=== PATIENT | female | born 1950 | race Caucasian/White ===

== ENCOUNTER 2016-08-07 17:35 | Observation (INO) | payer OTHER, MEDICARE ==
[~2016-08-07] VITALS: Ht 165.1 cm; Wt 68.0 kg
[~2016-08-07 17:35] MED LIST: ZOFRAN4 M1 SL
--- NOTE | 2016-08-07 17:51 | NUR ---
C/O PAIN BETWEEN SHOULDER BLADES SINCE YESTERDAY, WORSE TODAY. HAD SIMILIAR SXS WITH [place] 18 YEARS AGO AFTER KIDNEY TRANSPLANT. DENIES DIZZINESS OR SOB.
--- NOTE | 2016-08-07 18:37 | NUR ---
TRIAGE NOTE ACKNOWLEDGED AND RN CARE ASSUMED PT EVALUATED BY LIBERTAD ESPINOZA
--- NOTE | 2016-08-07 19:16 | NUR ---
IV ESTABLISHED. BLOOD SAMPLES OBTAINED AND SENT TO LAB ([facility], [facility], [facility], [facility])
[2016-08-07 19:29] LABS: ABSOLUTE BASOPHIL COUNT 0 /CUMM (0.0-0.2); ABSOLUTE EOSINOPHIL COUNT 0.1 /CUMM (0.0-0.7); ABSOLUTE GRANULOCYTE CT 4.9 /CUMM (1.4-6.5); ABSOLUTE LYMPH COUNT 0.9 /CUMM (1.2-3.4); ABSOLUTE MONOCYTE COUNT 0.5 /CUMM (0.10-0.60); BASOPHIL % 0.6 % (0.0-2.0); EOSINOPHIL % 1.1 % (0-5); GRANULOCYTE % 76.1 % (42.2-75.2); HEMATOCRIT 33.4 % (37-47); MEAN CORPUSCULAR HGB 34.5 PG (27.0-31.0); MEAN CORPUSCULAR HGB CONC 33.6 G/DL (33.0-37.0); MEAN CORPUSCULAR VOLUME 102.7 FL (81.0-99.0); MEAN PLATELET VOLUME 7.4 FL (7.4-10.4); PLATELET COUNT 404 /CUMM (130-400); RBC DISTRIBUTION WIDTH 19.1 % (11.5-14.5); RED BLOOD CELL CT 3.26 /CUMM (4.20-5.40); WHITE BLOOD CELL COUNT 6.5 /CUMM (4.8-10.8)
--- NOTE | 2016-08-07 19:31 | RADIOLOGY REPORT ---
EXAMINATION: XR CHEST CLINICAL INFORMATION: 65-year-old female patient with chest pain. COMPARISON: Chest x-ray done 10/20/2013. (Normal). TECHNIQUE: PA and lateral views of the chest were obtained. FINDINGS: No significant abnormality is noted involving the heart, lungs, mediastinum, bony thorax, or soft tissues. The thin linear scar is seen in the right lung and is unchanged. IMPRESSION: Unremarkable examination.
--- NOTE | 2016-08-07 20:17 | ED CARDIAC/CP/PALPITATIONS ---
History of Present Illness General Chief Complaint: Neck/Upper Back Pain/Injury Stated Complaint: UPPER BACK PAIN Source: patient Exam Limitations: no limitations Vital Signs & Intake/Output Vital Signs & Intake/Output Vital Signs Date Time Temp Pulse Resp B/P Pulse O2 O2 Flow FiO2 Ox Delivery Rate 08/07 1815 98.4 84 18 140/85 99 Room Air Allergies Coded Allergies: lisinopril (Severe, MOUTH SWELLING 09/08/15) Iodinated Contrast Media - Oral and (IODINATED CONTRAST MEDIA - IV DYE) (Severe, KIDNEY TRANSPLANT 09/08/15) codeine (NAUSEA 09/08/15) hydrochlorothiazide (NAUSEA 09/08/15) Triage Note: C/O PAIN BETWEEN SHOULDER BLADES SINCE YESTERDAY, WORSE TODAY. HAD SIMILIAR SXS WITH IN 18 YEARS AGO AFTER KIDNEY TRANSPLANT. Triage Nurses Notes Reviewed? yes Onset: Abrupt Duration: day(s):, intermittent Timing: recent history Quality/Severity: moderate, severe Location: back Radiation: no radiation Activities at Onset: none HPI: 65-year-old female comes into emergency room with complaints of upper back pain has been going on for the past few days. Patient has a history of IN and history of renal transplant. Patient reports that the pain that she is experiencing felt exactly like the previous heart attack that she had. Patient also complains of some chest achiness on the anterior aspect denies actual pain. Denies any vomiting or diaphoresis. Mild shortness of breath. (LIBERTAD BIRMINGHAM) Reconcile Medications Azathioprine 50 MG TABLET 1 TAB PO DAILY PER LIST (Reported) Bupropion HCl (Bupropion XL) 300 MG TAB.ER.24H 1 TAB PO QAM PER LIST ( Reported) Clonidine HCl 0.1 MG TABLET 1 TAB PO QPM PER LIST (Reported) Cyclosporine, Modified (Cyclosporine Modified) 100 MG CAPSULE 125 MG PO BID PER LIST (Reported) Esomeprazole (Nexium) 40 MG CAPSULE.DR 1 CAP PO DAILY PER LIST (Reported) Furosemide 40 MG TABLET 1 TAB PO BID PER LIST (Reported) Hydralazine HCl 100 MG TABLET 1 TAB PO TID PER LIST (Reported) Lorazepam 0.5 MG TABLET 1 TAB PO AT BEDTIME PER LIST (Reported) Metoprolol Tartrate 100 MG TABLET 1 TAB PO BID PER LIST (Reported) Mometasone Furoate (Nasonex) 50 MCG SPRAY.PUMP 2 SPRAY NASB DAILY PER LIST ( Reported) Nifedipine (Procardia XL) 90 MG TAB.ER.24 1 TAB PO DAILY PER LIST (Reported) Nystatin 100,000 UNIT/ML ORAL.SUSP 5 ML PO 4 TIMES/DAY PER LIST (Reported) Ondansetron (Zofran Odt) 4 MG ODT 1 TAB SL TID PRN NAUSEA Prednisone 5 MG TABLET 1 TAB PO DAILY PER LIST (Reported) Prochlorperazine Maleate 5 MG TABLET 2.5 MG PO 0 PRN PER LIST (Reported) (VIVEK QUINONEZ DO) Past History Travel History Traveled to [place] past 21 day No Medical History Any Pertinent Medical History? see below for history Neurological: PSEUDO-TUMOR CERIBRI SMALL VESSEL DISEASE EENT: LEFT SINUS CYST Cardiovascular: myocardial infarction, HTN (R/T RENAL) Gastrointestinal: LACTOSE INTOLERANT Renal: renal transplant, POLYCYCTIC KIDNEY DISEASE Psychiatric: depression Blood Disorders: CHRONIC ELEVATED WBC CHRONIC LOW RBC Cancer(s): basal cell carcinoma History of MRSA: No History of VRE: No History of CDIFF: No Pneumonia Vaccine: 04/13/10 Influenza Vaccine: 04/02/15 Surgical History Surgical History: RENAL TRANSPLANT Psychosocial History Who do you live with Patient/Self Services at Home None What is your primary language Chinese Tobacco Use: Current Daily Use Daily Tobacco Use Amount/Type: => 5 Cigarettes daily ETOH Use: denies use Family History Hx Contributory? No (LIBERTAD BIRMINGHAM) Review of Systems Review of Systems Constitutional: Reports: no symptoms. EENTM: Reports: no symptoms. Respiratory: Reports: see HPI. Cardiovascular: Reports: see HPI. GI: Reports: no symptoms. Genitourinary: Reports: no symptoms. Musculoskeletal: Reports: see HPI. Skin: Reports: no symptoms. Neurological/Psychological: Reports: no symptoms. Hematologic/Endocrine: Reports: no symptoms. Immunologic/Allergic: Reports: no symptoms. All Other Systems: Reviewed and Negative (LIBERTAD BIRMINGHAM) Physical Exam Physical Exam General Appearance: well developed/nourished, no apparent distress, alert, awake Head: atraumatic, normal appearance Eyes: Bilateral: normal appearance. Ears, Nose, Throat: normal pharynx, normal ENT inspection, hearing grossly normal Neck: normal inspection, full range of motion Respiratory: normal breath sounds, no respiratory distress Cardiovascular: regular rate/rhythm Gastrointestinal: normal bowel sounds, soft Back: normal inspection, normal range of motion Extremities: normal inspection, normal range of motion Neurologic/Psych: awake, alert, oriented x 3, normal gait Skin: intact, normal color Core Measures ACS in differential dx? Yes Severe Sepsis Present: No Septic Shock Present: No (LIBERTAD BIRMINGH[place]) Progress Differential Diagnosis: AMI, aortic dissection, atrial fibrillation, cholecystitis, hyperkalemia, hypovolemia, hyperthyroid, hyperventilation, intracranial hemorrhage, myocarditis, pancreatitis, pericarditis, pneumonia, pneumothorax, pulmonary embolism, PUD/GERD, PVCs/PACs, respiratory failure, rib fracture, sepsis, unstable angina, V-fib/V-Tach Initial ED EKG: normal intervals, normal p-waves, normal sinus rhythm, rate (73) (LIBERTAD BIRMINGHAM) Plan of Care: Orders Procedure Date/time Status Heart Healthy Diet 08/[address] in observation 08/07 2102 Active Patient Data 08/07 2057 Active Vital Signs 08/07 204 Active Code Status 08/07 204 Active Telemetry/Masking Machine Feeder 08/07 182 Active TROPONIN LEVEL 08/07 1829 Complete COMPREHENSIVE METABOLIC PANEL 08/07 1829 Complete CBC WITHOUT DIFFERENTIAL 08/07 182 Complete EKG 08/07 1750 Active Laboratory Tests 08/07/16 1911: Anion Gap 12, Estimated GFR 27 L, BUN/Creatinine Ratio 40.0 H, Glucose 105 H, Calcium 9.1, Total Bilirubin 0.6, AST 26, ALT 28, Alkaline Phosphatase 83, Troponin I < 0.01, Total Protein 7.1, Albumin 4.0, Globulin 3.1, Albumin/ Globulin Ratio 1.3, CBC w Diff NO MAN DIFF REQ, RBC 3.26 L, MCV 102.7 H, MCH 34.5 H, RDW 19.1 H, MPV 7.4, Gran % 76.1 H, Lymphocytes % 14.5 L, Monocytes % 7.7, Eosinophils % 1.1, Basophils % 0.6, Absolute Granulocytes 4.9, Absolute Lymphocytes 0.9 L, Absolute Monocytes 0.5, Absolute Eosinophils 0.1, Absolute Basophils 0, PUBS MCHC 33.6 Departure Departure Disposition: STILL A PATIENT Condition: Stable Referrals: DEVAUGHN PENA,AMPARO Akins (PCP/Family) Departure Forms: Customer Survey General Discharge Information (LIBERTAD B[place]) Departure Clinical Impression Primary Impression: EKG abnormalities Secondary Impressions: Chest pain Admission Note Documentation of Exam: Documentation of any treatments & extenuating circumstances including Concerns Regarding Discharge (functional status, medication knowledge or non-compliance, living conditions, etc.) that warrant an admission rather than observation: Observation Note Spoke With: SUMIT FELDMAN MD Physician Advisor Notified: NEELIMA PENA,BILLY Silva Place Patient In: Non-ED OBS Care Area Rationale for Observation: My rational for observation is as follows [patient needs serial troponins, cardiology consultation, inpatient echocardiogram, cardiac monitoring]. PA/BARREL LINER Co-Sign Statement Statement: ED Attending supervision documentation- [X] I saw and evaluated the patient. I have also reviewed all the pertinent lab results and diagnostic results. I agree with the findings and the plan of care as documented in the PA's/BARREL LINER's documentation. [] I have reviewed the ED Record and agree with the PA's/BARREL LINER's documentation. [] Additions or exceptions (if any) to the PAs/BARREL LINER's note and plan are summarized below: [] 08/07/16 65-year-old female presents to the emergency department complaining of back pain and intermittent chest ache. The patient states that she has symptoms consistent with her prior IN. Her EKG shows nonspecific but some changes compared to the old tracing. She is therefore being placed into observation to the telemetry service for serial enzymes, inpatient echocardiogram and cardiology evaluation. (VIVEK QUINONEZ DO) Critical Care Note Critical Care Note Critical Care Time: 30-74 min (LIBERTAD BIRMINGHAM)
--- NOTE | 2016-08-07 20:20 | NUR ---
OLGA REAVES AT BEDSIDE TO DISCUSS TEST RESULTS AND PLAN FOR CONSULT WITH PT'S [facility] (DR W[place])
--- NOTE | 2016-08-07 20:39 | NUR ---
DR QUINONEZ AND OLGA REAVES AT BEDSIDE TO DISCUSS ANTICIPATED ADMISSION POST CONSULT
--- NOTE | 2016-08-07 20:58 | History & Physical ---
[facility] [place] 08/07/162057: General Information and HPI MD Statement: I have seen and personally examined SANGEETA NAYAK and documented this H&P. The patient is a 65 year old F who presented with a patient stated chief complaint of back pain. 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 Pain is located in her mid back at the level of her bra strap and initially started yesterday afternoon. At that time it was very mild and resolved after a few hours upon applying heat. Today pain recurred around noon but it was more severe than the prior episode, 3-4 out of 10 and did not subside with applying heat or ice to the area. Pain is not positional and there are no alleviating or exacerbating factors. When the pain started this afternoon, she also had an "ache" in her chest that lasted about half an hour. Patient was concerned and decided to present to the ED as the pain was similar to the pain that she had felt during her what she refers to her prior episode of "OR" 3 days following her kidney transplant, except less intense. Looking back at her greens planter Dr Pederson notes, it was felt that prior episode was felt to represent takotsubo cardiomyopathy as cardiac cath performed during that time was negative for CAD. By the time patient presented to the ED, pain had already resolved. She has not received any nitroglycerin. Of note patient has frequent episodes of back pain, involving different parts of her back, which she attributes to her osteoarthritis but these episodes usually resolve after applying heat, unlike the current one. Allergies/Medications Allergies: Coded Allergies: lisinopril (Severe, MOUTH SWELLING 09/08/15) Iodinated Contrast Media - Oral and (IODINATED CONTRAST MEDIA - IV DYE) (Severe, KIDNEY TRANSPLANT 09/08/15) codeine (NAUSEA 09/08/15) hydrochlorothiazide (NAUSEA 09/08/15) Home Med list Ascorbic Acid (Vitamin C) 500 MG CAPSULE.ER 1 CAP PO DAILY SUPP (Reported) Aspirin (Oscar Chewable Aspirin) 81 MG TAB.CHEW 81 MG PO D PER LIST (Reported ) Azathioprine 50 MG TABLET 1 TAB PO DAILY PER LIST (Reported) Bupropion HCl (Bupropion XL) 300 MG TAB.ER.24H 1 TAB PO QAM PER LIST ( Reported) Calcium Carbonate/Vitamin D3 (Calcium 500 + D Tablet) 500 MG-400 TABLET 1 TAB PO BID SUPPLEMENT (Reported) Clonidine HCl 0.1 MG TABLET 1 TAB PO QPM PER LIST (Reported) Cyclobenzaprine HCl 10 MG TABLET 1 TAB PO BID PER LIST (Reported) Cyclosporine, Modified (Cyclosporine Modified) 100 MG CAPSULE 125 MG PO BID PER LIST (Reported) Epoetin Lukas (Epogen) (Unknown Strength) VIAL (Unknown Dose) PER LIST ( Reported) Ergocalciferol (Vitamin D2) (Vitamin D2) 50,000 UNIT CAPSULE 1 CAP PO QW SUPP (Reported) Esomeprazole (Nexium) 40 MG CAPSULE.DR 1 CAP PO DAILY PER LIST (Reported) Fexofenadine HCl (Laury Allergy) 180 MG TABLET 1 TAB PO DAILY ALLERGY ( Reported) Fish Oil/Borage/Flax/Om3,6,9#1 (Gorman 3-6-9 1,200 MG Softgel) 1,200 MG CAPSULE 1 CAP PO DAILY SUPPLEMENT (Reported) Furosemide 40 MG TABLET 1 TAB PO BID PER LIST (Reported) Hydralazine HCl 100 MG TABLET 1 TAB PO TID PER LIST (Reported) Lorazepam 0.5 MG TABLET 1 TAB PO AT BEDTIME PER LIST (Reported) Metoprolol Tartrate 100 MG TABLET 1 TAB PO BID PER LIST (Reported) Mometasone Furoate (Nasonex) 50 MCG SPRAY.PUMP 2 SPRAY NASB DAILY PER LIST ( Reported) Nifedipine (Procardia XL) 90 MG TAB.ER.24 1 TAB PO DAILY PER LIST (Reported) Nystatin 100,000 UNIT/ML ORAL.SUSP 5 ML PO 4 TIMES/DAY PER LIST (Reported) Ondansetron (Zofran Odt) 4 MG ODT 1 TAB SL TID PRN NAUSEA Polyethylene Glycol 3350 (Miralax) 17 GRAM POWD.PACK 1 PAC PO DAILY CONSTIPATION (Reported) dissolve in water Potassium Chloride 20 MEQ TAB.ER.PRT 1 TAB PO DAILY PER LIST (Reported) Prednisone 5 MG TABLET 1 TAB PO DAILY PER LIST (Reported) Prochlorperazine Maleate 5 MG TABLET 2.5 MG PO PRN PER LIST (Reported) Sertraline HCl 50 MG TABLET 75 MG PO DAILY PER LIST (Reported) Sodium Bicarbonate 650 MG TABLET 1 TAB PO BID PER LIST (Reported) Valsartan 320 MG TABLET 1 TAB PO DAILY PER LIST (Reported) Past History Travel History Traveled to [place] past 21 day No Medical History Neurological: peripheral neuropathy, pseudotumor cerebri, syncope EENT: left maxillary sinus cyst, arachnoid cyst Cardiovascular: hyperlipidemia, myocardial infarction, HTN Gastrointestinal: GERD, LACTOSE INTOLERANT, ventral hernia, paulino esophagitis Renal: 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), polycystic kidney disease, renal transplant Musculoskeletal: degen joint disease, osteoarthritis Psychiatric: anxiety, depression Blood Disorders: anemia Cancer(s): basal cell carcinoma Other Medical Hx: allergic rhinitis History of MRSA: No History of VRE: No History of CDIFF: No Pneumonia Vaccine: 04/13/10 Influenza Vaccine: 04/02/15 Surgical History Surgical History: hysterectomy, knee replacement (right), tubal ligation, renal transplant, lumbar peritoneal shunt placement, AC joint resection, BCC removal, meniscus surgery, AV fistula creation Past Family/Social History Family History Relations & Conditions if any FATHER, , Age 40-50; Cause: Brain aneurysm. FH: brain aneurysm Polycystic kidney disease BROTHER Polycystic kidney disease Psychosocial History Where do you live? Home Who Do You Live With? self Services at Home: None Primary Language: Bengali Smoking Status: Current Everyday Smoker (1 PPD for 40 Years) ETOH Use: denies use (Heavy Use in the Past) Illicit Drug Use: denies illicit drug use Living Will? yes Functional Ability ADLs Independent: dressing, eating, toileting, bathing. Ambulation: cane IADLs Independent: shopping, housework, finances, food prep, telephone, transportation , medication admin. 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 EENTM: Reports: no symptoms. Cardiovascular: Denies: chest pain, palpitations. Respiratory: Reports: cough (chronic), sputum production (chronic). Denies: short of breath. GI: Denies: abdominal pain, constipation, diarrhea, nausea, vomiting. Genitourinary: Reports: no symptoms. Musculoskeletal: Reports: back pain. Skin: Reports: no symptoms. Neurological/Psychological: Reports: no symptoms. Denies: headache. Hematologic/Endocrine: Reports: no symptoms. Immunologic/Allergic: Reports: no symptoms. All Other Systems: Reviewed and Negative Exam & Diagnostic Data Last 24 Hrs of Vital Signs/I&O Vital Signs Date Time Temp Pulse Resp B/P Pulse O2 O2 Flow FiO2 Ox Delivery Rate 08/08 0231 78 168/80 08/08 0231 78 168/80 08/08 0113 82 178/82 08/08 0113 82 178/82 08/07 2307 98.1 79 20 190/90 95 Room Air 08/07 2248 78 18 171/81 95 Room Air 08/07 1815 98.4 84 18 140/85 99 Room Air Intake & Output 08/08 0800 08/08 0000 08/07 1600 Intake Total Output Total Balance Patient 68.039 kg Weight Physical Exam General Appearance Alert, Oriented X3, No Acute Distress Skin No Rashes HEENT PERRLA, Mucous Membr. moist/pink, Tongue Brown in Color Cardiovascular Regular Rate, Normal S1, Normal S2 Lungs Clear to Auscultation Abdomen Soft, No Tenderness, Nondistended, Positive Bowel Sounds Neurological No Gross Focal Deficits Noted Extremities No Clubbing, No Cyanosis, Left Lower Extremity with 1+ Edema ( Chronic Per Patient), Right Lower Extremity with Trace Edema Last 24 Hrs of Labs/Emiliano: Laboratory Tests 08/08/16 0300: Troponin I < 0.01 08/07/16 1911: Anion Gap 12, Estimated GFR 27 L, BUN/Creatinine Ratio 40.0 H, Glucose 105 H, Calcium 9.1, Total Bilirubin 0.6, AST 26, ALT 28, Alkaline Phosphatase 83, Troponin I < 0.01, Total Protein 7.1, Albumin 4.0, Globulin 3.1, Albumin/ Globulin Ratio 1.3, Lipase 265, CBC w Diff NO MAN DIFF REQ, RBC 3.26 L, MCV 102.7 H, MCH 34.5 H, RDW 19.1 H, MPV 7.4, Gran % 76.1 H, Lymphocytes % 14.5 L, Monocytes % 7.7, Eosinophils % 1.1, Basophils % 0.6, Absolute Granulocytes 4.9, Absolute Lymphocytes 0.9 L, Absolute Monocytes 0.5, Absolute Eosinophils 0.1, Absolute Basophils 0, PUBS MCHC 33.6 Diagnostic Data EKG Results EKG: NSR HR 73 Poor progression of R wave. No ST-T wave abnormalities noted. QTc 463 CXR Results CXR: Unremarkable examination. Assessment/Plan Assessment: 65 y/o F with PMHx of polycystic kidney disease s/p kidney transplant in 1997 with residual CKD, takotsubo cardiomyopathy and resistant HTN who presents with back pain. #Back pain: Midback pain which per patient is similar to her prior episode of pain 3 days after except her kidney transplant, felt to represent takotsubo cardiomyopathy in the absence of CAD on cardiac cath. Concerning for ACS in the setting of her significant risk factors for CAD including smoking, resistant HTN , CKD and HLD. Differential includes musculoskeletal etiology given history of back pain 2/2 osteoarthritis and pancreatitis. PE unlikely in the absence of SOB or tachycardia. EKG with NSR and no ST-T wave abnormalities. First set of troponins negative. * Admit to telemetry for continuous cardiac monitoring. * Cardiology consult in the AM. Appreciate their recs. * Serial troponins and EKG. * Avoid imaging with contrast as patient is s/p kidney transplant with CKD. * Lipase ordered to rule out pancreatitis. * Continue home daily low dose aspirin. * Continue home Flexeril 10 mg PO BID. #PCKD: S/p transplant in 1997. Cr 1.9 on admission, which appears to be baseline for patient. * Continue prior to admission azathioprine 50 mg PO QD, cyclosporine 100 mg PO BID and prednisone 5 mg PO QD. #HTN: Meets criteria for resistant HTN as patient is on >3 different blood pressure medications including a diuretic. * Continue prior to admission Lasix 40 mg PO QD, clonidine 0.1 mg PO QHS, metoprolol 100 mg PO BID and hydralazine 100 mg PO TID. * Losartan 100 mg PO QD (Patient takes valsartan 320 mg PO QD). #Paulino esophagitis: Recently diagnosed by EGD. * Continue Nystatin 5 ml PO QID. #Depression: * Continue prior to admission Zoloft 75 mg PO QD and Wellbutrin 300 mg PO QAM. #Anxiety: * Continue prior to admission Ativan 0.5 mg PO QHS. #GERD: * Omeprazole 40 mg PO QAC. Diet: Heart Healthy Pain: Tylenol 650 mg PO Q6H PRN for mild pain (scale 1-3) DVT PPx: HSQ and ALPs CODE: FULL As Ranked By This Provider Problem List: 1. Chest pain 2. EKG abnormalities 3. Polycystic kidney disease 4. Resistant hypertension Core Measures/Miscellaneous Acute Coronary Syndrome ACS Diagnosis: No Cerebrovascular Accident CVA/TIA Diagnosis: No Congestive Heart Failure CHF Diagnosis: No Venous Thromboembolism VTE Risk Factors: Acute medical illness, Age > 40, Smoking VTE Prophylaxis Ordered Inpt: Mech & Pharm No Mech VTE prophylaxis d/t: No contraindications No VTE Pharm Prophylaxis d/t: No contraindications VTE Diagnosis: No VTE Type: NONE VTE Confirmed by (Test): NONE Severe Sepsis Severe Sepsis Present: No Septic Shock Septic Shock Present: No Miscellaneous Documentation Attending Case Discussed With: DYLAN NORMAN MD Primary Care Physician: DEVAUGHN PENA,AMPARO Akins Patient sees these Specialists Coding Team Lead Juan Castillo MD Balloon Sander Noah Pederson MD Level of Patient Care: Telemetry [facility] 08/08/16 0229: Resident Review Statement Resident Statement: examined this patient, discussed with intern retail, agreed with intern retail Other Findings: 65 YO F with pmh of mi, renal transplant, pseudo tumor cerebri, polycystic kidney disease presents to the ER c/o pain that started between her shoulders at the level of her bra strap. Reports that her pain started about 3 hours prior to admision, which has since resoloved without medical management. She denies recent episodes of such pain. Denies sob, palpitation, lightheadedness. She is worried that this pain may resemble the mi she suffered though not nearly as severe. T 98.4, P 18, BP 140/85, 99 RA Alert Oriented x4, sitting comfortably CVS S1 S2, no m/r/g, -jvd RS clear to auscultation b/l Abdo soft, nontender, nondistended, bd+ HH 11.2/33.4, MCV 102.7, BUN 76, Creatinine 1.9, negative tropoinins CXR no signifcant abn noted involving heart, lungs, mediastinum mc thorax or soft tissues We will admit her to Teleetry for ruling out OR due to her extensive cardiac troponin. Will get serial troponins and EKGS, cardiology evaluation (sees dr. retana) will continue medications for renal transplant, ie azithroprine, cyclosporin, recieved procrit earlier. Appears to have resistant htn due to polycystic kidney disease, closely monitor bp and continue home medications keeping bp in goal. Use mood stablizers, pain pathway, full code, dvt ppx SUMIT FELDMAN 08/08/16 0317: Attending MD Review Statement Attending Statement Attending MD Statement: examined this patient, discuss w/resident/PA/DYER AND WASHER, agreed w/resident/PA/DYER AND WASHER, reviewed EMR data (avail), reviewed images, amended to note Attending Assessment/Plan: CC: Mid back pain and chest pain PMH: Polycystic kidney disease S/P transplant, CKD baseline creatinine at 2.0, hypertension, idiopathic intracranial hypertension S/P shunt, depression, arachnoid cyst. Patient presented with mid back pain between her shoulder blades, had an episode yesterday and today lasting about 2-3 hours. Today she noticed chest achiness along with the back pain, started at rest. This pain was similar to her previous heart attack, so she came to ER. By the time we saw patient pain had resolved. Patient did not receive any nitroglycerin. Denies any palpitations, radiation of pain, shortness of breath, nausea or vomiting. No positional component, no aggravating or relieving factors. Patient has chronic cough with sputum production since last 6 months being evaluated outpatient. She recently underwent EGD outpatient and was found to have Paulino. Vitals: Afebrile, HR, RR, O2 saturation in acceptable range, blood pressure was 140/85 in ER increased maximum up to 190/90. On exam a O 3, no acute distress, no respiratory distress, no JVD, no lymphadenopathy, mucosa moist, neck supple, peripheral perfusion normal, trace edema right lower extremity +1 edema left lower extremity (chronic for her), RS: Clear to auscultate bilaterally. CVS: S1- S2, RRR, no reproducible pain. Abdomen: Soft, NT, ND, bowel sounds present. No focal neurological deficit Labs: Hemoglobin 11.2, MCV 102.7, creatinine 1.9, troponin <0.01 otherwise BMP, LFT unremarkable. EKG: Poor progression of R wave CXR: Unremarkable A and P #1 chest pain: Patient has previous history of OR, admit on telemetry, serial EKG, trend troponin, aspirin 81 mg by mouth once, cardiology consult in a.m. patient follows up with Dr. Monae outpatient. Low suspicion for PE, pain resolved, no tachypnea, no tachycardia, unnecessary contrast avoided as patient has transplanted kidney with CKD. Check lipase to rule out pancreatitis, chest x -ray is negative for any infiltrates. #2 chronic stable problems polycystic kidney disease S/P transplant, CKD: Creatinine baseline, hypertension, depression: Continue all her home medications including azathioprine, bupropion, clonidine, Compazine, Nexium, Flovent, Lasix 40 mg by mouth daily, hydralazine, Ativan, metoprolol, nifedipine, nystatin, prednisone, as sertraline, by mouth bicarbonate and valsartan. #3 DVT prophylaxis with heparin, adequate pain control. #3 DVT prophylaxis with heparin, adequate pain control.
[2016-08-07] MEDS ORDERED: PROCHLORPERAZINE5 M2 PO (21:13)
[2016-08-07] MEDS ORDERED: AZATHIOPRINE50 M1 PO (21:13)
[2016-08-07] MEDS ORDERED: CLONIDINE HCL0.1 MG PO (21:14)
[2016-08-07] MEDS ORDERED: BUPROPION XL300 M1 PO (21:14)
[2016-08-07] MEDS ORDERED: CYCLOSPORINE M100 MG PO (21:15)
[2016-08-07] MEDS ORDERED: HYDRALAZINE HC100 M1 PO (21:16)
[2016-08-07] MEDS ORDERED: NEXIUM40 M1 PO (21:17)
[2016-08-07] MEDS ORDERED: NYSTATIN100000 UNI PO (21:18)
[2016-08-07] MEDS ORDERED: LORAZEPAM0.5 M1 PO (21:19)
[2016-08-07] MEDS ORDERED: FUROSEMIDE40 M1 PO (21:20)
[2016-08-07] MEDS ORDERED: NASONEX17 GM NASB (21:20)
[2016-08-07] MEDS ORDERED: PREDNISONE5 M1 PO (21:21)
[2016-08-07] MEDS ORDERED: METOPROLOL TAR100 M1 PO (21:21)
[2016-08-07] MEDS ORDERED: PROCARDIA XL90 M1 PO (21:22)
[2016-08-07] MEDS ORDERED: VALSARTAN320 M1 PO (21:24)
[2016-08-07] MEDS ORDERED: SERTRALINE HCL50 MG PO (21:25)
[2016-08-07] MEDS ORDERED: SODIUM BICARBO650 M1 PO (21:25)
[2016-08-07] MEDS ORDERED: BAYER CHEWABLE81 MG PO (21:27)
[2016-08-07] MEDS ORDERED: CYCLOBENZAPRINE10 M1 PO (21:28)
[2016-08-07] MEDS ORDERED: EPOGEN2000 UNIT/ (21:29)
[2016-08-07] MEDS ORDERED: POTASSIUM CHLO20 ME2 PO (21:29)
--- NOTE | 2016-08-07 21:36 | NUR ---
HOUSE STAFF AT BEDSIDE FOR EVAL
--- NOTE | 2016-08-07 21:59 | NUR ---
BED ASSIGNED 183-1
--- NOTE | 2016-08-07 22:30 | NUR ---
REPORT CALLED TO NINO GRULLON. DISTRIBUTION CALLED TO TRANSPORT PT
--- NOTE | 2016-08-07 22:46 | NUR ---
PT TRANSPORTED TO FLOOR BY THIS RN. CARE TRANSFERED TO SOCIAL ORGANIZATION PROFESSOR WITHOUT INCIDENT.
[2016-08-07 23:07] VITALS: BP 190/90
[2016-08-07] MEDS ORDERED: OMEGA 3-6-9 11200 MG PO (23:48)
[2016-08-07] MEDS ORDERED: ALLEGRA ALLERG180 M1 PO (23:48)
[2016-08-07] MEDS ORDERED: CALCIUM 500 +1 EAC5 PO (23:48)
[2016-08-07] MEDS ORDERED: MIRALAX17 G1 PO (23:49)
[2016-08-07] MEDS ORDERED: VITAMIN D250000 UNIT PO (23:50)
[2016-08-07] MEDS ORDERED: VITAMIN C500 M7 PO (23:51)
[2016-08-08 08:07] VITALS: BP 170/82
--- NOTE | 2016-08-08 09:35 | PN- Housestaff ---
[facility] PENA,[facility] 08/08/16 0935: Subjective Follow-up For: Chest pain Tele-Events Since Last Visit: Sinus rhythm with heart rate 60-80 First degree heart No events Subjective: Patient was seen and examined this morning, she denies any chest pain, palpitation, shortness of breath, diaphoresis, dizziness. She reported that last night she had chest pain 2-3 out of 10 that resolved with Tylenol and no pain since then. No overnight events. Vital signs are stable Review of Systems Constitutional: Denies: see HPI. Objective Last 24 Hrs of Vital Signs/I&O Vital Signs Date Time Temp Pulse Resp B/P Pulse O2 O2 Flow FiO2 Ox Delivery Rate 08/08 1010 73 140/88 08/08 0909 63 170/82 08/08 0909 63 170/82 08/08 0807 98.2 63 20 170/82 97 Room Air 08/08 0800 Room Air 08/08 0231 78 168/80 08/08 0231 78 168/80 08/08 0113 82 178/82 08/08 0113 82 178/82 08/07 2307 98.1 79 20 190/90 95 Room Air 08/07 2248 78 18 171/81 95 Room Air 08/07 1815 98.4 84 18 140/85 99 Room Air Intake & Output 08/08 1600 08/08 0800 08/08 0000 Intake Total 720 Output Total Balance 720 Intake, Oral 720 Number 0 Bowel Movements Patient 68.039 kg Weight Physical Exam General Appearance: Alert, Oriented X3, Cooperative, No Acute Distress Skin: No Rashes, No Breakdown, No Significant Lesion HEENT: Atraumatic, PERRLA, EOMI, Mucous Membr. moist/pink Neck: Supple Cardiovascular: Regular Rate, Normal S1, Normal S2, No Murmurs Lungs: Clear to Auscultation, Normal Air Movement Abdomen: Normal Bowel Sounds, Soft, No Tenderness Neurological: Normal Gait, Normal Speech, Strength at 5/5 X4 Ext, Normal Tone, Sensation Intact, Cranial Nerves 3-12 NL, Reflexes 2+ Extremities: No Clubbing, No Cyanosis, No Edema Assessment/Plan Assessment: 65 y/o F with PMHx of polycystic kidney disease s/p kidney transplant in 1997 with residual CKD, takotsubo cardiomyopathy and resistant HTN who presents with back pain. #Back pain: -Patient denied any pain this morning -Cardiology consultation Dr. Monae was obtained -With trend down the troponin and EKG negative -Patient is for discharge today to follow up with Dr. Dominique as an outpatient #PCKD: S/p transplant in 1997. Cr 1.9 on admission, which appears to be baseline for patient. -Continue prior to admission azathioprine 50 mg PO QD, cyclosporine 100 mg PO BID and prednisone 5 mg PO QD. #HTN: Meets criteria for resistant HTN as patient is on >3 different blood pressure medications including a diuretic. -Continue prior to admission Lasix 40 mg PO QD, clonidine 0.1 mg PO QHS, metoprolol 100 mg PO BID and hydralazine 100 mg PO TID. -Losartan 100 mg PO QD (Patient takes valsartan 320 mg PO QD). #Mary esophagitis: Recently diagnosed by EGD. -Continue Nystatin 5 ml PO QID. #Depression: -Continue prior to admission Zoloft 75 mg PO QD and Wellbutrin 300 mg PO QAM. #Anxiety: -Continue prior to admission Ativan 0.5 mg PO QHS. #GERD: -Omeprazole 40 mg PO QAC. Diet: Heart Healthy Pain: Tylenol 650 mg PO Q6H PRN for mild pain (scale 1-3) DVT PPx: HSQ and ALPs CODE: FULL Problem List: 1. Chest pain Pain Ratin Pain Location: n/a Pain Goal: Remain pain free Pain Plan: see medication Tomorrow's Labs & Rationales: patient discharged today DYLAN NORMAN MD 08/08/16 1702: Attending MD Review Statement Attending Statement Attending MD Statement: examined this patient, discuss w/resident/PA/VICE PRESIDENT OF MANUFACTURING, agreed w/resident/PA/VICE PRESIDENT OF MANUFACTURING, discussed with family, reviewed EMR data (avail), discussed with nursing, discussed with case mgmt, amended to note Attending Assessment/Plan: The patient was seen and discussed with house staff. Agree with the plan of care as outlined.
[2016-08-08 10:10] VITALS: BP 140/88
--- NOTE | 2016-08-08 10:34 | Cons- Cardiology ---
General Information and HPI Consulting Request Date of Consult: 08/08/16 Requested By: DYLAN NORMAN MD Reason for Consult: chest pain Source of Information: patient, old records Exam Limitations: no limitations History of Present Illness: Mrs. Sandra Rosen is a 65-year-old female was admitted with back pain. The patient has had intermittent back discomfort for several years. She is reminded that after renal transplant she had severe back pain and reportedly had "heart attack". She underwent a cardiac catheterization at that time that showed normal coronary arteries. The [place] team was perplexed as to why she had a heart attack and her coronary arteries were normal. The patient has had intermittent back pain since then for the last 10 years. However her back pain last for about 2 hours and is relieved usually by heating pad. Yesterday her back discomfort persisted longer and she got concerned that this might be related to a heart attack. Her previous episodes of back pain of come on regardless of exertion. Yesterday after she was shopping she returned home and had back pain. Therefore she decided to come to the emergency room. She is known to have renal transplant, hypertension and hyperlipidemia. She is intolerant to statins. She underwent knee replacement about 2 years ago and had a nuclear stress test that was normal prior to this. She has had a past medical history of Mcintosh's esophagus, some COPD, chronic kidney disease, and depression dyslipidemia. Allergies/Medications Allergies: Coded Allergies: lisinopril (Severe, MOUTH SWELLING 09/08/15) Iodinated Contrast Media - Oral and (IODINATED CONTRAST MEDIA - IV DYE) (Severe, KIDNEY TRANSPLANT 09/08/15) codeine (NAUSEA 09/08/15) hydrochlorothiazide (NAUSEA 09/08/15) Home Med List: Ascorbic Acid (Vitamin C) 500 MG CAPSULE.ER 1 CAP PO DAILY SUPP (Reported) Aspirin (Oscar Chewable Aspirin) 81 MG TAB.CHEW 81 MG PO D PER LIST (Reported ) Azathioprine 50 MG TABLET 1 TAB PO DAILY PER LIST (Reported) Bupropion HCl (Bupropion XL) 300 MG TAB.ER.24H 1 TAB PO QAM PER LIST ( Reported) Calcium Carbonate/Vitamin D3 (Calcium 500 + D Tablet) 500 MG-400 TABLET 1 TAB PO BID SUPPLEMENT (Reported) Clonidine HCl 0.1 MG TABLET 1 TAB PO QPM PER LIST (Reported) Cyclobenzaprine HCl 10 MG TABLET 1 TAB PO BID PER LIST (Reported) Cyclosporine, Modified (Cyclosporine Modified) 100 MG CAPSULE 125 MG PO BID PER LIST (Reported) Epoetin Lukas (Epogen) (Unknown Strength) VIAL (Unknown Dose) PER LIST ( Reported) Ergocalciferol (Vitamin D2) (Vitamin D2) 50,000 UNIT CAPSULE 1 CAP PO QW SUPP (Reported) Esomeprazole (Nexium) 40 MG CAPSULE.DR 1 CAP PO DAILY PER LIST (Reported) Fexofenadine HCl (Laury Allergy) 180 MG TABLET 1 TAB PO DAILY ALLERGY ( Reported) Fish Oil/Borage/Flax/Om3,6,9#1 ([place] 3-6-9 1,200 MG Softgel) 1,200 MG CAPSULE 1 CAP PO DAILY SUPPLEMENT (Reported) Furosemide 40 MG TABLET 1 TAB PO BID PER LIST (Reported) Hydralazine HCl 100 MG TABLET 1 TAB PO TID PER LIST (Reported) Lorazepam 0.5 MG TABLET 1 TAB PO AT BEDTIME PER LIST (Reported) Metoprolol Tartrate 100 MG TABLET 1 TAB PO BID PER LIST (Reported) Mometasone Furoate (Nasonex) 50 MCG SPRAY.PUMP 2 SPRAY NASB DAILY PER LIST ( Reported) Nifedipine (Procardia XL) 90 MG TAB.ER.24 1 TAB PO DAILY PER LIST (Reported) Nystatin 100,000 UNIT/ML ORAL.SUSP 5 ML PO 4 TIMES/DAY PER LIST (Reported) Ondansetron (Zofran Odt) 4 MG ODT 1 TAB SL TID PRN NAUSEA Polyethylene Glycol 3350 (Miralax) 17 GRAM POWD.PACK 1 PAC PO DAILY CONSTIPATION (Reported) dissolve in water Potassium Chloride 20 MEQ TAB.ER.PRT 1 TAB PO DAILY PER LIST (Reported) Prednisone 5 MG TABLET 1 TAB PO DAILY PER LIST (Reported) Prochlorperazine Maleate 5 MG TABLET 2.5 MG PO 0 PRN PER LIST (Reported) Sertraline HCl 50 MG TABLET 75 MG PO DAILY PER LIST (Reported) Sodium Bicarbonate 650 MG TABLET 1 TAB PO BID PER LIST (Reported) Valsartan 320 MG TABLET 1 TAB PO DAILY PER LIST (Reported) Current Medications: Current Medications Sig/Tati Start time Last Medication Dose Route Stop Time Status Admin Acetaminophen 650 MG Q6P PRN 08/08 0430 AC PO Acetaminophen 650 MG ONCE ONE 08/08 010 DC PO 08/08 0101 Acetaminophen 650 MG Q6P PRN 08/07 2345 DC 08/08 PO 0002 Aspirin 81 MG DAILY 08/08 1000 AC 08/08 PO 0909 Azathioprine 50 MG DAILY 08/08 1000 AC 08/08 PO 0909 Bupropion HCl 300 MG QAM 08/08 1000 AC 08/08 PO 0909 Clonidine 0.1 MG QPM 08/08 0030 AC 08/08 PO 0231 Cyclobenzaprine HCl 10 MG BID 08/07 2308 AC 08/08 PO 0909 Cyclosporine 100 MG Q12 08/08 1000 DC PO Cyclosporine 25 MG Q12 08/08 1000 DC PO Cyclosporine 25 MG Q12 08/08 0115 AC 08/08 PO 0910 Cyclosporine 100 MG Q12 08/08 0115 AC 08/08 PO 0909 Fluticasone 2 PUF BID 08/08 0030 AC 08/08 Propionate INH 0910 Furosemide 40 MG BID 08/08 1000 AC 08/08 PO 0909 Hydralazine HCl 100 MG TID 08/07 2345 AC 08/08 PO 0909 Lorazepam 0.5 MG AT BEDTIME 08/07 2345 AC 08/08 PO / 2159 0232 Losartan Potassium 100 MG DAILY 08/08 0045 AC 08/08 PO 0231 Metoprolol Tartrate 100 MG BID 08/07 2345 AC 08/08 PO 0909 Multivitamins 1 TAB DAILY 08/08 1000 AC 08/08 PO 0909 Nystatin 5 ML 4 TIMES/DAY 08/08 1000 DC PO Nystatin 5 ML 4 TIMES/DAY 08/08 0030 AC 08/08 PO 0910 Omeprazole 40 MG DAILY AC 08/08 0700 AC 08/08 PO 0614 Prednisone 5 MG DAILY 08/08 1000 AC 08/08 PO 0909 Sertraline HCl 75 MG DAILY 08/08 1000 AC 08/08 PO 0909 Sodium Chloride 2 SPRAY AT BEDTIME 08/07 2345 AC 08/08 MOHSEN 0232 Review of Systems Review of Systems Constitutional: Denies: no symptoms. EENTM: Denies: no symptoms. Cardiovascular: Reports: see HPI. Respiratory: Denies: no symptoms. GI: Denies: no symptoms. Genitourinary: Denies: no symptoms. Musculoskeletal: Denies: no symptoms. Skin: Denies: no symptoms. Neurological/Psychological: Denies: no symptoms. Hematologic/Endocrine: Denies: no symptoms. 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 FH: brain aneurysm Polycystic kidney disease BROTHER Polycystic kidney disease Psychosocial History Where Do You Live? Home Who Do You Live With? self Services at Home: None Primary Language: [place] Smoking Status: Current Everyday Smoker (1 PPD for 40 Years) ETOH Use: denies use (Heavy Use in the Past) Illicit Drug Use: denies illicit drug use Living Will? yes Functional Ability ADLs Independent: dressing, eating, toileting, bathing. Ambulation: cane IADLs Independent: shopping, housework, finances, food prep, telephone, transportation , medication admin. Employment History Employment: Retired Profession/Employer [employer] ECHO Results (as available) EF% 60 Report: Normal left ventricular systolic function with disproportionate upper septal thickening without left ventricle outflow tract obstruction. No significant valvular abnormalities noted Exam & Diagnostic Data Vital Signs and I&O Vital Signs Date Time Temp Pulse Resp B/P Pulse O2 O2 Flow FiO2 Ox Delivery Rate 08/08 1010 73 140/88 08/08 0909 63 170/82 08/08 0909 63 170/82 08/08 0807 98.2 63 20 170/82 97 Room Air 08/08 0800 Room Air 08/08 0231 78 168/80 08/08 0231 78 168/80 08/08 0113 82 178/82 08/08 0113 82 178/82 08/07 2307 98.1 79 20 190/90 95 Room Air 08/07 2248 78 18 171/81 95 Room Air 08/07 1815 98.4 84 18 140/85 99 Room Air Intake & Output 01/26 1600 01/26 0800 08/08 0000 08/07 1600 08/07 0800 08/07 0000 Intake Total 720 Output Total Balance 720 Intake, Oral 720 Number 0 Bowel Movements Patient 150 lb Weight Physical Exam: General exam she appeared comfortable Head normocephalic/atraumatic Head eyes sclera anicteric conjunctiva showed no pallor extraocular muscles were normal Neck no jugular venous distention no thyroid masses no palpable nodes Chest lungs were clear bilaterally Heart regular rhythm without murmurs Abdomen soft no organomegaly bowel sounds normal Extremities no clubbing cyanosis or pedal edema Neurological no gross motor or sensory deficits Labs/Emiliano Results: Laboratory Tests 08/08 08/07 0300 1911 Chemistry Sodium (137 - 145 mmol/L) 139 Potassium (3.5 - 5.1 mmol/L) 4.5 Chloride (98 - 107 mmol/L) 101 Carbon Dioxide (22 - 30 mmol/L) 25 Anion Gap (5 - 16) 12 BUN (7 - 17 mg/dL) 76 H Creatinine (0.5 - 1.0 mg/dL) 1.9 H Estimated GFR (>60 ml/min) 27 L BUN/Creatinine Ratio (7 - 25 %) 40.0 H Glucose (65 - 99 mg/dL) 105 H Calcium (8.4 - 10.2 mg/dL) 9.1 Total Bilirubin (0.2 - 1.3 mg/dL) 0.6 AST (14 - 36 U/L) 26 ALT (9 - 52 U/L) 28 Alkaline Phosphatase (<127 U/L) 83 Troponin I (< 0.11 ng/ml) < 0.01 < 0.01 Total Protein (6.3 - 8.2 g/dL) 7.1 Albumin (3.5 - 5.0 g/dL) 4.0 Globulin (1.9 - 4.2 gm/dL) 3.1 Albumin/Globulin Ratio (1.1 - 2.2 %) 1.3 Lipase (23 - 300 U/L) 265 Hematology CBC w Diff NO MAN DIFF REQ WBC (4.8 - 10.8 /CUMM) 6.5 RBC (4.20 - 5.40 /CUMM) 3.26 L Hgb (12.0 - 16.0 G/DL) 11.2 L Hct (37 - 47 %) 33.4 L MCV (81.0 - 99.0 FL) 102.7 H MCH (27.0 - 31.0 PG) 34.5 H RDW (11.5 - 14.5 %) 19.1 H Plt Count (130 - 400 /CUMM) 404 H MPV (7.4 - 10.4 FL) 7.4 Gran % (42.2 - 75.2 %) 76.1 H Lymphocytes % (20.5 - 51.1 %) 14.5 L Monocytes % (1.7 - 9.3 %) 7.7 Eosinophils % (0 - 5 %) 1.1 Basophils % (0.0 - 2.0 %) 0.6 Absolute Granulocytes (1.4 - 6.5 /CUMM) 4.9 Absolute Lymphocytes (1.2 - 3.4 /CUMM) 0.9 L Absolute Monocytes (0.10 - 0.60 /CUMM) 0.5 Absolute Eosinophils (0.0 - 0.7 /CUMM) 0.1 Absolute Basophils (0.0 - 0.2 /CUMM) 0 PUBS MCHC (33.0 - 37.0 G/DL) 33.6 Diagnostic Data EKG Results Sinus rhythm with some minor T-wave changes but within normal limits Assessment/Plan Assessment/Plan In summary this 65-year-old female was admitted with complaints of atypical angina manifested by back discomfort which is prolonged. She has no bio markers are positive. She has negative troponins and no serial change in electrocardiogram. I doubt very much that this is cardiac related. I believe she can be discharged with outpatient nuclear stress testing to workup for ischemic heart disease. 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 Her other problems include hypertension, hyperlipidemia, chronic renal insufficiency. Thank you for me the opportunity of participating in her care. Consult Acknowledgment - Thank you for your consult request.
--- NOTE | 2016-08-08 10:49 | Patient Discharge Instructions ---
Discharge Instructions General Discharge Information Special Instructions: Please follow-up with your PCP within 1 week after discharge Please follow up with your photoengraving supervisor Dr. Dominique within 1 week after discharge Acute Coronary Syndrome Inclusion Criteria At DC or during hospital stay patient has or had the following: ACS DIAGNOSIS No Discharge Core Measures Meds if any: Prescribed or Continued at Discharge Meds if any: NOT Prescribed or Continued at Discharge Congestive Heart Failure Inclusion Criteria At DC or during hospital stay patient has or had the following: CHF DIAGNOSIS No Discharge Core Measures Meds if any: Prescribed or Continued at Discharge Meds if any: NOT Prescribed or Continued at Discharge Cerebrovascular accident Inclusion Criteria At DC or during hospital stay patient has or had the following: CVA/TIA Diagnosis No Discharge Core Measures Meds if any: Prescribed or Continued at Discharge Meds if any: NOT Prescribed or Continued at Discharge Venous thromboembolism Inclusion Criteria VTE Diagnosis No VTE Type NONE VTE Confirmed by (Test) NONE Discharge Core Measures - Per Current guidelines, there needs to be overlap - treatment for the first 5 days of Warfarin therapy. - If discharged on Warfarin prior to 5 days of - overlap therapy, the patient will need to be - assessed for post discharge needs including - *Post discharge parental anticoagulation - *Warfarin and/or parental anticoagulation education - *Follow up date to check INR post discharge At least 5 days overlap therapy as Inpatient No Meds if any: Prescribed or Continued at Discharge Note: Overlap Therapy is Warfarin and Anticoagulant Meds if any: NOT Prescribed or Continued at Discharge
--- NOTE | 2016-08-08 12:20 | ECHOCARDIOGRAM REPORT ---
SANGEETA NAYAK Age: 65 : 1950 Gender: F Exam Date: 08/08/2016 10:22 Exam Location: [address] Ht (in): 65 Wt (lb): 150 BSA: 1.78 BP: 168 / 80 Ordering Physician: YANY DE ANDA MD Referring Physician: YANY DE ANDA MD Technologist: Israel Toney [facility] Room Number: 183-1 Indications: Chest Pain Rhythm: Sinus Technical Quality: fair FINDINGS Left Ventricle Normal global left ventricular size, wall thickness, systolic function with no obvious regional wall motion abnormalities. Normal left ventricular ejection fraction estimated at 60-65%. Proximal thickening of the septum. Right Ventricle Normal right ventricular size and function. Right Atrium Normal right atrial size. Left Atrium Normal left atrial size. Mitral Valve Mild mitral annular calcification. Trace to mild mitral regurgitation. Aortic Valve Aortic valve not well visualized, grossly normal. Tricuspid Valve Tricuspid valve not well visualized, grossly normal. Mild tricuspid regurgitation. Right ventricular systolic pressure estimated to be within the normal range at mmHg. Pulmonic Valve Pulmonic valve not well visualized, grossly normal. Pericardium No pericardial effusion. Great Vessels Normal size aortic root. CONCLUSIONS Normal left ventricular systolic function without segmental abnormalities. No significant valvular abnormalities noted. Noah Pederson M.D. (Electronically Signed) Final Date: 08 August 2016 12:19 MEASUREMENTS (Male / Female) Normal Values 2D ECHO LV Diastolic Diameter PLAX 4.8 cm 4.2 - 5.9 / 3.9 - 5.3 cm LV Systolic Diameter PLAX 3.0 cm 2.1 - 4.0 cm LV Fractional Shortening PLAX 37.5 % 25 - 46 % LV Ejection Fraction 2D Teich 67.4 % IVS Diastolic Thickness 1.1 cm LVPW Diastolic Thickness 1.1 cm LV Relative Wall Thickness 0.5 RV Internal Dim ED PLAX 3.3 cm 1.9 - 3.8 cm LVOT Diameter 1.9 cm Aortic Root Diameter 3.0 cm LA Systolic Diameter LX 3.1 cm 3.0 - 4.0 / 2.7 - 3.8 cm LA Volume 32.0 cm 18 - 58 / 22 - 52 cm Ascending Aorta Diameter 2.8 cm DOPPLER AV Peak Velocity 102.0 cm/s AV Peak Gradient 4.2 mmHg AV Mean Velocity 64.6 cm/s AV Mean Gradient 2.0 mmHg AV Velocity Time Integral 25.8 cm LVOT Peak Velocity 76.7 cm/s LVOT Peak Gradient 2.4 mmHg LVOT Mean Velocity 46.0 cm/s LVOT Mean Gradient 1.0 mmHg LVOT Velocity Time Integral 17.2 cm LVOT Stroke Volume 48.8 cm AV Area Cont Eq vti 1.9 cm AV Area Cont Eq pk 2.1 cm MV Peak Velocity 93.4 cm/s MV Peak Gradient 3.5 mmHg MV Mean Velocity 44.1 cm/s MV Mean Gradient 1.0 mmHg Mitral E Point Velocity 35.0 cm/s Mitral A Point Velocity 75.0 cm/s Mitral E to A Ratio 0.5 MV PHT Velocity 53.0 cm/s MV Deceleration [place] 264.0 cm/s MV Pressure Half Time 60.2 ms MV Area PHT 3.7 cm PV Peak Velocity 96.7 cm/s PV Peak Gradient 3.7 mmHg PV Mean Velocity 66.3 cm/s PV Mean Gradient 2.0 mmHg PV Velocity Time Integral 22.8 cm LV E' Lateral Velocity 4.4 cm/s Mitral E to LV E' Lateral Ratio 8.0 LV E' Septal Velocity 5.0 cm/s Mitral E to LV E' Septal Ratio 7.0
== END 2016-08-08 11:30 ==
LOC: ENRESERVTM → ENRESERVDT → ERH 17:35 → ENPENDDIS 21:03 → ERHI 21:03 → 1NO 22:41
PROVIDERS: Physician Assistant Medical; ADMIT Internal Medicine
DX: R07.9 Chest pain, unspecified (principal); R94.31 Abnormal electrocardiogram [ECG] [EKG]; M54.89 Other dorsalgia; I25.2 Old myocardial infarction; Z94.0 Kidney transplant status
CPT/HCPCS: 2000; 6020; 93005; 93010; 93306; G0378; J3490; J7502; J7512; J7515

== ENCOUNTER 2017-09-07 15:05 | Inpatient (IN) | payer OTHER, MEDICARE ==
[~2017-09-07] VITALS: Ht 165.1 cm; Wt 77.6 kg
[~2017-09-07 15:05] MED LIST changes: +ALLEGRA ALLERG180 M1 PO; +AZATHIOPRINE50 M1 PO; +BAYER CHEWABLE81 MG PO; +BUPROPION XL300 M1 PO; +CALCIUM 500 +1 EAC5 PO; +CLONIDINE HCL0.1 MG PO; +CYCLOBENZAPRINE10 M1 PO; +CYCLOSPORINE M100 MG PO; +EPOGEN2000 UNIT/ IM; +FUROSEMIDE40 M1 PO; +HYDRALAZINE HC100 M1 PO; +LORAZEPAM0.5 M1 PO; +METOPROLOL TAR100 M1 PO; +MIRALAX17 G1 PO; +NASONEX17 GM NASB; +NEXIUM40 M1 PO; +NYSTATIN100000 UNI PO; +OMEGA 3-6-9 11200 MG PO; +POTASSIUM CHLO20 ME2 PO; +PREDNISONE5 M1 PO; +PROCARDIA XL90 M1 PO; +PROCHLORPERAZINE5 M2 PO; +SERTRALINE HCL50 MG PO; +SODIUM BICARBO650 M1 PO; +VALSARTAN320 M1 PO; +VITAMIN C500 M7 PO; +VITAMIN D250000 UNIT PO
--- NOTE | 2017-09-07 15:13 | ED INFLUENZA/URI COMPLAINT ---
History of Present Illness General Chief Complaint: General Adult Stated Complaint: WEAKNESS Source: patient, friend Exam Limitations: no limitations Vital Signs & Intake/Output Vital Signs & Intake/Output Vital Signs Date Time Temp Pulse Resp B/P B/P Pulse O2 O2 Flow FiO2 Mean Ox Delivery Rate 09/09 1351 97.8 79 20 138/70 95 Room Air 09/09 0748 79 132/80 09/09 0748 79 132/80 09/09 0700 98.9 79 20 132/80 95 Room Air 09/08 2219 99.0 84 20 122/74 94 Room Air 09/08 2052 99.0 84 20 122/74 09/08 2052 99.0 84 20 122/74 ED Intake and Output 09/09 0000 09/08 1200 Intake Total 640 525 Output Total 200 700 Balance 440 -175 Intake, IV 300 525 Intake, Oral 340 Number 0 Bowel Movements Output, Urine 200 700 Allergies Coded Allergies: lisinopril (Severe, MOUTH SWELLING 09/08/15) Iodinated Contrast- Oral and IV Dye (IODINATED CONTRAST MEDIA - IV DYE) (Severe, KIDNEY TRANSPLANT 09/08/15) codeine (NAUSEA 09/08/15) hydrochlorothiazide (NAUSEA 09/08/15) Triage Note: BIBA FROM HOME, C/O WEAKNESSS, LOW GRADE FEVER, POOR APPETITE X 3 DAYS. PUT ON TAMBIFLU YSTERDAY, BUT UNSURE IF SHE HAS THE FLU. (WAS NOT TESTED). ALERT, DENIES PAIN. Triage Nurses Notes Reviewed? yes Onset: Gradual Duration: getting worse Timing: recent history Severity: severe Severity Numbers: 8 HPI: Patient is a 66-year-old female with a past medical history polycystic kidney disease status post kidney transplant 1997 with residual CKD, 2/2 transplant GLOMERULONEPROPATHY, cardiomyopathy pseudotumor cerebri status post lumbar peritoneal shunt placement arachnoid and left maxillary sinus cyst, hypertension , depression, anxiety and hyponatremia who presents emergency room with gradually worsening generalized weakness and fatigue and in the past 3 days patient has been unable to get out of bed due to profound weakness. Patient has increased thirst however can tolerate by mouth complains of body aches and chills Denies any chest pain arm pain jaw pain, shortness of breath cough hemoptysis leg swelling dysuria Patient does complain prior to arrival mild nausea Friend does state that today she was having slurred speech however no facial droop or extremity weakness The neighbor who is here also states that for the past 24 hours patient has tried to get out of bed and has had significant difficulty where she has slid from the bed to the floor where patient is CALLED for help No injury has occurred from THIS (Mike Martinez) Reconcile Medications Ascorbic Acid (Vitamin C) 500 MG CAPSULE.ER 1 CAP PO DAILY SUPP (Reported) Aspirin (Oscar Chewable Aspirin) 81 MG TAB.CHEW 81 MG PO D PER LIST (Reported ) Azathioprine 50 MG TABLET 1 TAB PO DAILY PER LIST (Reported) Bupropion HCl (Bupropion XL) 300 MG TAB.ER.24H 1 TAB PO QAM PER LIST ( Reported) Calcium Carbonate/Vitamin D3 (Calcium 500 + D Tablet) 500 MG-400 TABLET 1 TAB PO BID SUPPLEMENT (Reported) Cephalexin (Keflex) 250 MG CAPSULE 1 TAB PO Q8 UTI Clonidine HCl 0.1 MG TABLET 1 TAB PO BID PER LIST (Reported) Cyclobenzaprine HCl 10 MG TABLET 1 TAB PO BID PER LIST (Reported) Cyclosporine, Modified (Cyclosporine Modified) 100 MG CAPSULE 125 MG PO BID PER LIST (Reported) Epoetin Lukas (Epogen) (Unknown Strength) VIAL 50,000 UNITS IM Q3WKS ANEMIA ( Reported) Ergocalciferol (Vitamin D2) (Vitamin D2) 50,000 UNIT CAPSULE 1 CAP PO SEE ADMIN CRITERIA KIDNEYS (Reported) EVERY OTHER MONTH Esomeprazole (Nexium) 40 MG CAPSULE.DR 1 CAP PO DAILY PER LIST (Reported) Fexofenadine HCl (Laury Allergy) 180 MG TABLET 1 TAB PO DAILY ALLERGY ( Reported) Fish Oil/Borage/Flax/Om3,6,9#1 (Doyline 3-6-9 1,200 MG Softgel) 1,200 MG CAPSULE 1 CAP PO DAILY SUPPLEMENT (Reported) Furosemide 40 MG TABLET 1 TAB PO BID PER LIST (Reported) Hydralazine HCl 100 MG TABLET 1 TAB PO TID PER LIST (Reported) Lorazepam 0.5 MG TABLET 1 TAB PO AT BEDTIME PER LIST (Reported) Metoprolol Tartrate 100 MG TABLET 1 TAB PO BID PER LIST (Reported) Mometasone Furoate (Nasonex) 50 MCG SPRAY.PUMP 2 SPRAY NASB DAILY PER LIST ( Reported) Nifedipine (Procardia XL) 90 MG TAB.ER.24 1 TAB PO DAILY PER LIST (Reported) Ondansetron (Zofran Odt) 4 MG ODT 1 TAB SL TID PRN NAUSEA Polyethylene Glycol 3350 (Miralax) 17 GRAM POWD.PACK 1 PAC PO DAILY CONSTIPATION (Reported) dissolve in water Potassium Chloride 20 MEQ TAB.ER.PRT 1 TAB PO DAILY PER LIST (Reported) Prednisone 5 MG TABLET 1 TAB PO DAILY PER LIST (Reported) Sertraline HCl 50 MG TABLET 75 MG PO DAILY PER LIST (Reported) Sodium Bicarbonate 650 MG TABLET 1 TAB PO BID PER LIST (Reported) Tizanidine HCl (Zanaflex) 2 MG CAPSULE 1 TAB PO BEDTIME HEADACHE (Reported) Valsartan 320 MG TABLET 1 TAB PO DAILY PER LIST (Reported) (Kyle Huston DO) Past History Travel History Traveled to [place] past 21 day No Medical History Any Pertinent Medical History? 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), polycystic kidney disease, renal transplant Musculoskeletal: degen joint disease, osteoarthritis Psychiatric: anxiety, depression Endocrine: NONE Blood Disorders: anemia Cancer(s): basal cell carcinoma OUTREACH MANAGER/Reproductive: NONE Other Medical Hx: allergic rhinitis History of MRSA: No History of VRE: No History of CDIFF: No Influenza Vaccine: 03/25/16 Surgical History Surgical History: hysterectomy, knee replacement (right), tubal ligation, renal transplant lumbar peritoneal shunt placement AC joint resection BCC removal meniscus surgery AV fistula creation Psychosocial History Who do you live with Patient/Self Services at Home None What is your primary language [place] Tobacco Use: Quit >30 days ago ETOH Use: occasional use Family History Family History, If Any: FATHER, , Age 40-50; Cause: Brain aneurysm. FH: brain aneurysm Polycystic kidney disease BROTHER Polycystic kidney disease Hx Contributory? No (Mike Martinez) Review of Systems Review of Systems Constitutional: Reports: see HPI, chills, fever. EENTM: Reports: no symptoms. Respiratory: Reports: no symptoms. Cardiovascular: Reports: no symptoms. GI: Reports: see HPI. Genitourinary: Reports: no symptoms. Musculoskeletal: Reports: see HPI, joint pain. Skin: Reports: no symptoms. Neurological/Psychological: Reports: no symptoms. Hematologic/Endocrine: Reports: no symptoms. Immunologic/Allergic: Reports: no symptoms. All Other Systems: Reviewed and Negative (Mike Martinez) Physical Exam Physical Exam General Appearance: no apparent distress, obese Head: atraumatic Eyes: Bilateral: normal appearance, PERRL, EOMI. Ears, Nose, Throat: normal ENT inspection, moist mucous membrane, hearing grossly normal, Tympanic normal, pharynx normal Neck: normal inspection, supple Respiratory: normal breath sounds, chest non-tender, no respiratory distress Cardiovascular: regular rate/rhythm Peripheral Pulses: 2+ radial (R) Gastrointestinal: normal bowel sounds, soft, non-tender Extremities: TRACE BILATERAL PITTING EDEMA, PT ABLE TO PERFORM SLR FULL AROM IN LOWER EXTREMITY DERMATOMES INTACT Neurologic/Psych: no motor/sensory deficits, awake, alert, oriented x 3 Skin: intact, normal color, warm/dry Core Measures Sepsis Present: No Sepsis Focused Exam Completed? No (Mike Martinez) Progress Differential Diagnosis: influenza, meningitis, neutropenia, otitis, pneumonia, pharyngitis, sinusitis Plan of Care: Orders Procedure Date/time Status BASIC ELECTROLYTES PLUS BUN&CR 09/10 0600 Active Lab Add-on Test 09/09 0600 Active CBC WITHOUT DIFFERENTIAL 09/09 0600 Complete BASIC ELECTROLYTES PLUS BUN&CR 09/09 0600 Complete Therapeutic Activities 09/09 UNK Complete Therapeutic Exercise 09/09 UNK Complete Gait Training 09/09 UNK Complete MISSING MEDICATION FORM 09/09 UNK Active Heart Healthy Diet 09/08 D Active Weight 09/08 UNK Active Intake & Output 09/08 UNK Complete Current Medications Sig/Tati Start time Last Medication Dose Stop Time Status Admin Melatonin 3 MG AT BEDTIME 09/09 2200 AC (Melatonin) Cephalexin 250 MG Q8 09/09 1400 AC 09/09 (Keflex) 1414 Ondansetron HCl 4 MG Q6P PRN 09/09 0845 AC 09/09 (Zofran) 0852 Polyethylene Glycol 17 GM DAILY PRN 09/09 0500 AC (Miralax) Sodium Chloride 1,000 ML Q13H 09/08 1430 AC 09/09 (Normal Saline 0.9%) 1401 Azathioprine 50 MG DAILY 09/08 1000 AC 09/09 (Imuran 50MG Tab) 0747 Bupropion HCl 300 MG QAM 09/08 1000 AC 09/09 (Wellbutrin XL) 0750 Clonidine 0.1 MG BID 09/08 1000 AC 09/09 (Catapres) 0748 Cyclosporine 25 MG Q12 09/08 1000 AC 09/09 (Neoral 25 MG Cap) 0748 Cyclosporine 100 MG Q12 09/08 1000 AC 09/09 (Neoral 100MG Cap) 0748 Prednisone 5 MG DAILY 09/08 1000 AC 09/09 0749 Sertraline HCl 75 MG DAILY 09/08 1000 AC 09/09 (Zoloft) 0750 Omeprazole 40 MG DAILY AC 09/08 0700 AC 09/09 (Prilosec) 0531 Heparin Sodium 5,000 UNIT Q8 09/07 2200 AC 09/09 (Porcine) 1300 Metoprolol Tartrate 100 MG BID 09/070 AC 09/09 (Lopressor) 0748 Sodium Bicarbonate 650 MG BID 09/070 AC 09/09 (Sodium Bicarb 325MG 0749 Tab) Tizanidine HCl 2 MG AT BEDTIME 09/07 2199 AC 09/08 (Zanaflex) 205 Acetaminophen 650 MG Q6P PRN 09/07 2044 AC 09/08 (Tylenol) 0622 Hydrocodone Bitart/ 1 TAB Q6P PRN 09/07 2044 AC Acetaminophen (Vicodin) Laboratory Tests 09/09/17 0710: Anion Gap 17 H, Estimated GFR 14 L, BUN/Creatinine Ratio 23.3, CBC w Diff MAN DIFF ORDERED, RBC 2.50 L, MCV 103.1 H, MCH 34.5 H, MCHC 33.5, RDW 18.1 H, MPV 7.8, Gran % 79.5 H, Lymphocytes % 11.1 L, Monocytes % 6.1, Eosinophils % 3.2, Basophils % 0.1, Absolute Granulocytes 5.1, Segmented Neutrophils 81 H, Band Neutrophils 4, Absolute Lymphocytes 0.7 L, Lymphocytes 11 L, Monocytes 4, Absolute Monocytes 0.4, Absolute Eosinophils 0.2, Absolute Basophils 0, Platelet Estimate ADEQUATE, Normochromic RBCs VERIFIED, Anisocytosis 1+, Macrocytic Cells 1+, Fld Total RBCs Counted 100, Cyclosporine Pending Patient was on initial exam resting comfortably bedside no apparent distress Patient had full active range of motion in a supine position of extremities no concerns of CVA or TIA Patient denies any respiratory or cardiovascular complaints Blood work influenza EKG and head CT were unremarkable Patient was given IV fluids and a meal Patient was evaluated for ambulatory status however she requires significant left assistance and 2 nurses to help patient partially weight-bear to the commode where patient does live in a private residence by her himself with 8 steps to enter her private residence patient also has significant declining baseline ambulatory status and is a significant fall risk and outpatient treatment would be medically harmful Discussed patient with case management who patient will require a three-day stay PT WILL BE TX FOR ABX FOR UTI Diagnostic Imaging: Viewed by Me: CT Scan. Radiology Impression: no acute abnormality, no fracture Initial ED EKG: normal p-waves, normal QRS complex, 76 BPM,NSR Prior EKG: unchanged Comments: PATIENT: SANGEETA NAYAK PRESENT AGE: 66 PATIENT ACCOUNT NO: [id number] : 52 LOCATION: [facility] ORDERING PHYSICIAN: Mike ESPINOZA SERVICE DATE: 09/07/17 EXAM TYPE: CAT - CT HEAD WO IV CONTRAST EXAMINATION: CT HEAD WITHOUT CONTRAST CLINICAL INFORMATION: Slurred speech, weakness COMPARISON: MRI brain 07/18/2016, 10/16/2013 TECHNIQUE: Contiguous axial imaging was performed from the skull base to vertex without intravenous administration of contrast. DLP: 620 mGy-cm FINDINGS: There is no evidence of acute intracranial hemorrhage or territorial infarction. No abnormal mass effect or midline shift is seen. Singletary to white matter differentiation is well preserved. No extra-axial fluid collections are identified. Stable small right-sided retrocerebellar arachnoid cyst. The right cerebellar tonsil is slightly low lying, unchanged compared to 2013. The ventricles are normal in size. There is mild to moderate scattered patchy hypodensities of the supratentorial white matter, similar in distribution compared to the previous study. The osseous structures and soft tissues are normal. The mastoid air cells and visualized portions of the paranasal sinuses are well aerated aside from a soft tissue mass within the left maxillary sinus measuring up to 3 cm. IMPRESSION: 1. No acute intracranial process. 2. Mild to moderate small vessel ischemic change. 3. Stable right retrocerebellar arachnoid cyst. Stable low-lying right cerebellar tonsil. DICTATED BY: Leona Mckeon MD DATE/TIME DICTATED:09/07/171637 EQUIPMENT MAINTENANCE ENGINEER:KENNETH DATE/TIME TRANSCRIBED:09/07/171637 (Autumn ESPINOZA,Mike) Departure Departure Disposition: STILL A PATIENT Condition: Stable Clinical Impression Primary Impression: UTI (urinary tract infection) Secondary Impressions: Multifactorial gait disorder, Viral syndrome, Weakness Referrals: Jessica PENA,Yury Akins (PCP/Family) Departure Forms: Customer Survey General Discharge Information Admission Note Spoke With: Dennise Scott MD Documentation of Exam: Documentation of any treatments & extenuating circumstances including Concerns Regarding Discharge (functional status, medication knowledge or non-compliance, living conditions, etc.) that warrant an admission rather than observation: [ Patient requires a slow IV fluids, IV ABX, dietary consultation and repeat labs physical therapy consultation and transfer to short-term rehabilitation due to profound weakness and fall risk] (Mike Martinez) Departure Prescriptions: Current Visit Scripts Cephalexin (Keflex) 1 TAB PO Q8 #13 CAP PA/TECHNICAL SERVICES SPECIALIST Co-Sign Statement Statement: ED Attending supervision documentation- [x] I saw and evaluated the patient. I have also reviewed all the pertinent lab results and diagnostic results. I agree with the findings and the plan of care as documented in the PA's/TECHNICAL SERVICES SPECIALIST's documentation. [] I have reviewed the ED Record and agree with the PA's/TECHNICAL SERVICES SPECIALIST's documentation. [] Additions or exceptions (if any) to the PAs/TECHNICAL SERVICES SPECIALIST's note and plan are summarized below: [] I've seen and personally examined the patient and I agree with the PAs evaluation. 66-year-old female with severe global weakness. She is unable to ambulate safely. There has been a significant change in her ability to function. Premature discharged with cause harm. (Kyle Huston DO
[2017-09-07 15:48] LABS: ABSOLUTE BASOPHIL COUNT 0 /CUMM (0.0-0.2); ABSOLUTE EOSINOPHIL COUNT 0 /CUMM (0.0-0.7); ABSOLUTE GRANULOCYTE CT 7.4 /CUMM (1.4-6.5); ABSOLUTE LYMPH COUNT 0.6 /CUMM (1.2-3.4); ABSOLUTE MONOCYTE COUNT 0.5 /CUMM (0.10-0.60); BASOPHIL % 0.1 % (0.0-2.0); EOSINOPHIL % 0.1 % (0-5); GRANULOCYTE % 86.4 % (42.2-75.2); HEMATOCRIT 26.6 % (37-47); MEAN CORPUSCULAR HGB CONC 33.3 G/DL (33.0-37.0); MEAN CORPUSCULAR VOLUME 105.1 FL (81.0-99.0); PLATELET COUNT 326 /CUMM (130-400); RBC DISTRIBUTION WIDTH 17.9 % (11.5-14.5); RED BLOOD CELL CT 2.54 /CUMM (4.20-5.40)
[2017-09-07] MEDS ORDERED: TAMIFLU75 M1 PO (15:50)
[2017-09-07] MEDS ORDERED: ZANAFLEX2 M2 PO (15:50)
[2017-09-07 16:12] LABS: WHITE BLOOD CELL COUNT 8.6 /CUMM (4.8-10.8)
--- NOTE | 2017-09-07 16:47 | CT SCAN REPORT ---
EXAMINATION: CT HEAD WITHOUT CONTRAST CLINICAL INFORMATION: Slurred speech, weakness COMPARISON: MRI brain 07/18/2016, 10/16/2013 TECHNIQUE: Contiguous axial imaging was performed from the skull base to vertex without intravenous administration of contrast. DLP: 620 mGy-cm FINDINGS: There is no evidence of acute intracranial hemorrhage or territorial infarction. No abnormal mass effect or midline shift is seen. Singletary to white matter differentiation is well preserved. No extra-axial fluid collections are identified. Stable small right-sided retrocerebellar arachnoid cyst. The right cerebellar tonsil is slightly low lying, unchanged compared to 2013. The ventricles are normal in size. There is mild to moderate scattered patchy hypodensities of the supratentorial white matter, similar in distribution compared to the previous study. The osseous structures and soft tissues are normal. The mastoid air cells and visualized portions of the paranasal sinuses are well aerated aside from a soft tissue mass within the left maxillary sinus measuring up to 3 cm. IMPRESSION: 1. No acute intracranial process. 2. Mild to moderate small vessel ischemic change. 3. Stable right retrocerebellar arachnoid cyst. Stable low-lying right cerebellar tonsil.
[2017-09-07] MEDS ORDERED: HYDRALAZINE HC100 M1 PO (20:36)
--- NOTE | 2017-09-07 21:15 | History & Physical ---
Gabe PENA,Maribel 09/07/172113: General Information and HPI MD Statement: I have seen and personally examined SANGEETA NAYAK and documented this H&P. The patient is a 66 year old F who presented with a patient stated chief complaint of [weakness]. 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 The patient contacted her PCP who prescribed her Tamiflu, today is day 2, however she was tested for the flu .Patient denies any cough, expectoration, sore throat, runny nose. She also denies any nausea, vomiting, diarrhea, dysuria, frequency, changes in the color or smell of her urine. Patient will follow-up with , and she was found to have deteriorating kidney function and he is watching her kidney function regularly. Patient had Doppler ultrasound on 2018 which was within normal limits Of note the patient was started on Crestor last week, she used to be on atorvastatin however she has with her PCP to change it to Crestor because of leg pain ED course: Vital signs: Blood pressure 170/58, pulse 75, temperature 98.3, pulse ox 95 on room air CBC: WBC 8.6, hemoglobin 8.9, hematocrit 26.6, platelets 326, BEP was significant for hyponatremia sodium 131, potassium 4.5, anion gap 14, BUN 76, creatinine 3.2, glucose 127, lactic acid 0.7, calcium 8.6, magnesium 2.3, AST 20 , AST 29, CPK 55, troponin 0.02, urinalysis was positive for small leukocyte esterase, few RBCs, urine WBC 510, urine bacteria packed Chest x-ray: No evidence of acute process CT head: No acute intracranial process, mild to moderate small vessel ischemic changes, stable right lateral cerebellar arachnoid cyst Patient received IV bolus 1 L normal saline, IV ceftriaxone 1 g in the ED Allergies/Medications Allergies: Coded Allergies: lisinopril (Severe, MOUTH SWELLING 09/08/15) Iodinated Contrast- Oral and IV Dye (IODINATED CONTRAST MEDIA - IV DYE) (Severe, KIDNEY TRANSPLANT 09/08/15) codeine (NAUSEA 09/08/15) hydrochlorothiazide (NAUSEA 09/08/15) Home Med list Ascorbic Acid (Vitamin C) 500 MG CAPSULE.ER 1 CAP PO DAILY SUPP (Reported) Aspirin (Oscar Chewable Aspirin) 81 MG TAB.CHEW 81 MG PO D PER LIST (Reported ) Azathioprine 50 MG TABLET 1 TAB PO DAILY PER LIST (Reported) Bupropion HCl (Bupropion XL) 300 MG TAB.ER.24H 1 TAB PO QAM PER LIST ( Reported) Calcium Carbonate/Vitamin D3 (Calcium 500 + D Tablet) 500 MG-400 TABLET 1 TAB PO BID SUPPLEMENT (Reported) Clonidine HCl 0.1 MG TABLET 1 TAB PO BID PER LIST (Reported) Cyclobenzaprine HCl 10 MG TABLET 1 TAB PO BID PER LIST (Reported) Cyclosporine, Modified (Cyclosporine Modified) 100 MG CAPSULE 125 MG PO BID PER LIST (Reported) Epoetin Lukas (Epogen) (Unknown Strength) VIAL 50,000 UNITS IM Q3WKS ANEMIA ( Reported) Ergocalciferol (Vitamin D2) (Vitamin D2) 50,000 UNIT CAPSULE 1 CAP PO SEE ADMIN CRITERIA KIDNEYS (Reported) EVERY OTHER MONTH Esomeprazole (Nexium) 40 MG CAPSULE.DR 1 CAP PO DAILY PER LIST (Reported) Fexofenadine HCl (Laury Allergy) 180 MG TABLET 1 TAB PO DAILY ALLERGY ( Reported) Fish Oil/Borage/Flax/Om3,6,9#1 (Lewis 3-6-9 1,200 MG Softgel) 1,200 MG CAPSULE 1 CAP PO DAILY SUPPLEMENT (Reported) Furosemide 40 MG TABLET 1 TAB PO BID PER LIST (Reported) Hydralazine HCl 100 MG TABLET 1 TAB PO TID PER LIST (Reported) Lorazepam 0.5 MG TABLET 1 TAB PO AT BEDTIME PER LIST (Reported) Metoprolol Tartrate 100 MG TABLET 1 TAB PO BID PER LIST (Reported) Mometasone Furoate (Nasonex) 50 MCG SPRAY.PUMP 2 SPRAY NASB DAILY PER LIST ( Reported) Nifedipine (Procardia XL) 90 MG TAB.ER.24 1 TAB PO DAILY PER LIST (Reported) Ondansetron (Zofran Odt) 4 MG ODT 1 TAB SL TID PRN NAUSEA Polyethylene Glycol 3350 (Miralax) 17 GRAM POWD.PACK 1 PAC PO DAILY CONSTIPATION (Reported) dissolve in water Potassium Chloride 20 MEQ TAB.ER.PRT 1 TAB PO DAILY PER LIST (Reported) Prednisone 5 MG TABLET 1 TAB PO DAILY PER LIST (Reported) Sertraline HCl 50 MG TABLET 75 MG PO DAILY PER LIST (Reported) Sodium Bicarbonate 650 MG TABLET 1 TAB PO BID PER LIST (Reported) Tizanidine HCl (Zanaflex) 2 MG CAPSULE 1 TAB PO BEDTIME HEADACHE (Reported) Valsartan 320 MG TABLET 1 TAB PO DAILY PER LIST (Reported) Past History Travel History Traveled to [place] past 21 day No Medical History Neurological: peripheral neuropathy, pseudotumor cerebri syncope EENT: left maxillary sinus cyst arachnoid cyst Cardiovascular: hypertension, hyperlipidemia, myocardial infarction Respiratory: NONE Gastrointestinal: GERD, LACTOSE INTOLERANT ventral hernia paulino esophagitis Hepatic: NONE Renal: 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), polycystic kidney disease, renal transplant Musculoskeletal: degen joint disease, osteoarthritis Psychiatric: anxiety, depression Endocrine: NONE Blood Disorders: anemia Cancer(s): basal cell carcinoma SAFETY DEPOSIT BOXES CUSTODIAN/Reproductive: NONE Other Medical Hx: allergic rhinitis History of MRSA: No History of VRE: No History of CDIFF: No Influenza Vaccine: 03/25/16 Surgical History Surgical History: hysterectomy, knee replacement (right), tubal ligation, renal transplant lumbar peritoneal shunt placement AC joint resection BCC removal meniscus surgery AV fistula creation Past Family/Social History Family History Relations & Conditions if any FATHER, , Age 40-50; Cause: Brain aneurysm. FH: brain aneurysm Polycystic kidney disease BROTHER Polycystic kidney disease Psychosocial History Who Do You Live With? self Services at Home: None Primary Language: South African ETOH Use: occasional use Living Will? yes Functional Ability ADLs Independent: dressing, eating, toileting, bathing. Ambulation: cane IADLs Independent: shopping, housework, finances, food prep, telephone, transportation , medication admin. Review of Systems Review of Systems Constitutional: Reports: fever, malaise, weakness. EENTM: Denies: no symptoms. Cardiovascular: Denies: no symptoms. Respiratory: Denies: cough, hemoptysis, orthopnea, short of breath, sputum production. GI: Denies: bloating, constipation, diarrhea, distention, nausea, bloody stool. Genitourinary: Denies: discharge, dysuria, frequency, hematuria, hesitation, nocturia, pain. Musculoskeletal: Denies: no symptoms. Skin: Denies: no symptoms. Neurological/Psychological: Denies: no symptoms. Hematologic/Endocrine: Denies: no symptoms. Exam & Diagnostic Data Last 24 Hrs of Vital Signs/I&O Vital Signs Date Time Temp Pulse Resp B/P B/P Pulse O2 O2 Flow FiO2 Mean Ox Delivery Rate 09/07 2256 78 134/62 09/07 2230 99.6 78 20 134/62 94 Room Air 09/07 2043 98.3 75 18 117/58 95 Room Air 09/07 1839 98.9 75 15 124/59 94 Room Air 09/07 1509 99.5 79 22 142/63 92 Room Air Intake & Output 09/08 0800 09/08 0000 09/07 1600 Intake Total 1000 Output Total 650 Balance 350 Intake, IV 1000 Output, Urine 650 Patient 160 lb 160 lb Weight Weight Reported by Patient Reported by Patient Measurement Method Physical Exam General Appearance Alert, Oriented X3, Cooperative, No Acute Distress Skin No Rashes, No Breakdown, No Significant Lesion HEENT Atraumatic, PERRLA, EOMI, Mucous Membr. moist/pink Neck Supple, No JVD Cardiovascular Normal S1, Normal S2, No Murmurs Lungs Clear to Auscultation Abdomen Normal Bowel Sounds, Soft, No Tenderness Neurological Normal Speech, Strength at 5/5 X4 Ext, Normal Tone Last 24 Hrs of Labs/Emiliano: Laboratory Tests 09/07/171817: Lactic Acid Cancelled 09/07/171808: Urine Color YEL, Urine Clarity HAZY H, Urine pH 6.0, Ur Specific [place] 1.020, Urine Protein 100 H, Urine Ketones NEG, Urine Nitrite NEG, Urine Bilirubin NEG, Urine Urobilinogen 0.2, Ur Leukocyte Esterase SMALL H, Ur Microscopic SEDIMENT EXAMINED, Urine RBC FEW H, Urine WBC 5-10 H, Ur Epithelial Cells FEW, Urine Bacteria PACKD H, Urine Mucus RARE, Urine Hemoglobin NEG, Urine Glucose NEG 09/07/171808: Urine Osmolality 288 L, Ur Random Creatinine 41.5, Ur Random Sodium 41, Ur Random Potassium 38.6, Fraction Sodium Excret 2.4 H 09/07/17 1531: Anion Gap 14, Estimated GFR 15 L, BUN/Creatinine Ratio 23.8, Glucose 127 H, Serum Osmolality 294, Lactic Acid 0.7, Calcium 8.6, Magnesium 2.3, Total Bilirubin 0.7, AST 20, ALT 29, Alkaline Phosphatase 85, Creatine Kinase 65, Troponin I 0.02, Total Protein 6.1 L, Albumin 3.4 L, Globulin 2.7, Albumin/ Globulin Ratio 1.3, CBC w Diff NO MAN DIFF REQ, RBC 2.54 L, MCV 105.1 H, MCH 35.0 H, MCHC 33.3, RDW 17.9 H, MPV 7.0 L, Gran % 86.4 H, Lymphocytes % 7.1 L, Monocytes % 6.3, Eosinophils % 0.1, Basophils % 0.1, Absolute Granulocytes 7.4 H, Absolute Lymphocytes 0.6 L, Absolute Monocytes 0.5, Absolute Eosinophils 0, Absolute Basophils 0 Microbiology 09/07 1809 URINE ROUT: Urine Culture - RECD 09/07 1517 NASOPHARYN: Influenza Virus A & B Rapid Smear - COMP Diagnostic Data EKG Results NSR. 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 Vital signs: Blood pressure 170/58, pulse 75, temperature 98.3, pulse ox 95 on room air CBC: WBC 8.6, hemoglobin 8.9, hematocrit 26.6, platelets 326, BEP was significant for hyponatremia sodium 131, potassium 4.5, anion gap 14, BUN 76, creatinine 3.2, glucose 127, lactic acid 0.7, calcium 8.6, magnesium 2.3, AST 20 , AST 29, CPK 55, troponin 0.02, urinalysis was positive for small leukocyte esterase, few RBCs, urine WBC 510, urine bacteria packed Chest x-ray: No evidence of acute process CT head: No acute intracranial process, mild to moderate small vessel ischemic changes, stable right lateral cerebellar arachnoid cyst #Weakness, ? UTI Most likely due to infection, patient has urinalysis suggestive of UTI however she is asymptomatic which make it more likely a symptomatic bacteriuria. She was recently started on Tamiflu which make the results of the flu swab not sensitive. Might be also due to Crestor however her CPK and LFT are normal Admitted to general medicine floor Continue IV ceftriaxone for now Follow-up one urine culture vitals Q shift PT evaluation Fall precautions #ROCIO on CKD/history of renal transplantation Gentle IV fluid hydration with normal saline 75 mL/h Neurology consult in the morning Follow up on repeat BEP Follow up on urine lytes, osmolality, serum osmolality Hold home meds of Lasix and Valsartan Continue other home meds including cyclosporine and azathioprine Please confirm home meds in the morning DVT prophylaxis with subcutaneous heparin Full code Heart healthy diet As Ranked By This Provider Problem List: 1. UTI (urinary tract infection) 2. Weakness Core Measures/Misc (03/30) Acute Coronary Syndrome ACS Diagnosis: No Congestive Heart Failure Congestive Heart Failure Diagnosis No Cerebrovascular Accident CVA/TIA Diagnosis: No VTE (View Protocol) VTE Risk Factors Age>40 No Mechanical VTE Prophylaxis d/t N/A MechProphylax Ordered No VTE Pharm Prophylaxis d/t NA PharmProphylax ordered Sepsis (View protocol) Sepsis Present: No IsaiLenin 09/08/17 0001: Resident Review Statement Resident Statement: examined this patient, discussed with sourcing intern, agreed with sourcing intern, reviewed EMR data (avail), discussed with nursing, discussed with case mgmt, reviewed images, amended to note Other Findings: Ms Nayak is a 66 year-old Female with medical history of polycystic kidney disease s/p kidney transplant in 1997 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 She presented to the emergency department with the chief complaint of worsening generalized weakness, fatigue and an apical template for the past 3-4 days. Patient stated that for the past week she started to feel tired, weak and difficulty ambulation. Patient stated that before all the symptoms started she was started on Crestor, she is not sure as the claim history showed patient was recently started on atorvastatin AND after that she started report low-grade fever 99.9, with chills and aches all over her body so she went to see her primary care doctor who prescribed for her Tamiflu she took it for 2 days and stop after that. The neighbor who is here also states that for the past 24 hours patient has tried to get out of bed and has had significant difficulty where she has slid from the bed to the floor where patient is called him for help. She denied any trauma to the head, to the back, she denies any chest pain, shortness of breath, wheezing, cough, sputum production, abdominal pain, nausea, vomiting, diarrhea, hematuria, dysuria, headaches, change in vision or hearing. The ED patient has positive urinalysis patient was started on IV ceftriaxone and IV fluid hydration as his creatinine function getting worse compared with the previous. Patient stated that she follow Dr. Castillo machine carton marker who noticed that her renal function getting worse slowly and he watch her on regular basis. Patient had Doppler renal ultrasound that was done for assessment 2018 that came back within acceptable limits. Physical examination, lab and imaging as above. Problem list: -Generalized weakness-that could be secondary to atorvastatin versus deconditioning due to underlying Hyponatremia. -Acute on chronic kidney injury -Abnormal urine analysis/UTI Plan: -Admit patient to general medicine floor -Vitals every shift, precaution fall risk -Obtain creatine kinase -Continue IV ceftriaxone -Follow urine culture -Continue IV fluid hydration of normal saline at 75 mL per hour -Obtain urine lytes, osm and seum osm -Nephrology consultation in a.m. -Repeat basic electrolyte midnight -Physical therapy consultation in a.m. -Hold off home medication of Lasix, VALSARTAN -Continue the rest of home medication including cyclosporine, azathioprine. -Please confirm the patient home medication in a.m. -Heart healthy diet -Pain pathway -DVT prophylaxis subcutaneous heparin -Full code. 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 She noted a temp of 100 at home. She called her PCP who prescribed her Tamiflu which she took for 2 days now. She lives alone and ambulates with a cane. She reports a mechanical fall (slid down) at home twice while going to the bathroom. Denies any prodromal symptoms or LOC. Today she could not get off the floor, so she called her friend to assist her. Friend reports that patient was confused. Patient was recently started on crestor/ ?lipitor she is unclear. She denies any recent antibiotic use. She denies chest pain, dyspnea, vomiting, abdominal pain, diarrhea. She denies dysuria, hematuria, urinary frequency or foul smelling urine. She is on aspirin daily, but denies any other NSAID use. She denies melena, hematemesis or BRBPR. Patient follows with Dr. Castillo who is aware of the worsening creatinine, renal doppler normal. Vitals stable. Exam: she appears euvolemic, not in any distress. No focal deficits. Labs: no leukocytosis, H/H 8.9/26.6, macrocytic anemia, Na 131 ( baseline 133-140), bicarb 21, BUN 76, creat 3.2 (Baseline 2.5), glucose 127, S. Osmolality 294, trop neg. Flu swab negative. CK normal UA hazy proteinuria, small LE, WBC 5-10, packed bacteria. Urine lytes: osmolality low 288, sodium 41, FeNA 2.4. CXR: no acute process. CT head: no acute process, mild to moderate small vessel ischemic change, stable right retrocerebellar arachnoid cyst. EKG: sinus rhythm, no acute changes. Echo (2017): EF 60-65%. In the ER, patient tried to ambulate and was found to be an assist of 2. Assessment and plan: 1. Generalized weakness, inability to ambulate 2. Acute on chronic hyponatremia ?SIADH 3. ROCIO on CKD stage 4 with NAGMA 4. UTI asymptomatic (immunocompromised) 5. H/o renal transplant currently on prednisone, imuran and cyclospirine 6. Unclear if she has statin induced myopathy CK and LFTs normal. - Admit to General medicine - Fall precautions - Urine culture, continue IV ceftriaxone as she had low grade temp at home and is immunocompromised - She received IV fluids in the ER, repeat sodium is 129, hold off further fluids for now. - Place her on 1000 ml fluid restriction. - Check TSH, free T4, cortisol levels - Nephro consult - Hold lasix, valsartan and statin - PT consult, possible STR - Case management consult - Watch H/H, guaiac all stools - Patient last received epogen 1 week ago. - Continue prednisone, cyclosporine, sodium bicarb and azathioprine - If hypotensive, consider stress dose steroids. DVT ppx Alps (due to anemia). Full code.
[2017-09-07 22:30] VITALS: BP 134/62
--- NOTE | 2017-09-07 22:38 | RADIOLOGY REPORT ---
EXAMINATION: XR CHEST CLINICAL INFORMATION: Fever, weakness COMPARISON: 08/07/2016 TECHNIQUE: 2 views of the chest were obtained. FINDINGS: Cardiac and mediastinal silhouette is within normal limits. Lungs are symmetric expanded. There are no pleural effusions or pneumothorax. No focal consolidation. Stable linear scar in the right midlung. No acute osseous abnormality. IMPRESSION: No evidence of acute process.
--- NOTE | 2017-09-08 03:07 | Admission Certification ---
Admission Certification Certification Statement - As attending physician, I certify that at the time of - admission, based on clinical presentation, severity of - symptoms, need for further diagnostic testing and - therapeutic interventions, and risk of adverse outcomes - without in-hospital treatment, in my clinical assessment, - this patient requires an acute hospital stay for a minimum - of two nights or longer. I have also considered psychsocial - factors such as support system, advanced age, financial - issues, cognitive issues, and failed out-patient treatments, - past re-admission history, safety of patient, and lack of - compliance as applicable. Specific rationale supporting this admission is: Weakness, UTI, inability to ambulate, requires PT and possible STR.
[2017-09-08 06:59] VITALS: BP 132/62
--- NOTE | 2017-09-08 07:48 | PN- Housestaff ---
Subjective Follow-up For: UTI Hyponatremia weakness Subjective: Patient seen and examined. She is seen sitting in her chair at bedside resting comfortably. She appears to be in no acute distress. She reports feeling "much better" than when she first came in. She admits to feeling a bit weak still. She denies any urinary complaints or fever, chills. Review of Systems Constitutional: Reports: see HPI. Objective Last 24 Hrs of Vital Signs/I&O Vital Signs Date Time Temp Pulse Resp B/P B/P Pulse O2 O2 Flow FiO2 Mean Ox Delivery Rate 09/08 1417 98.3 68 20 130/70 96 Room Air 09/08 1035 78 132/62 09/08 1035 78 132/62 09/08 0659 98.4 78 20 132/62 93 09/07 2256 78 134/62 09/07 2230 99.6 78 20 134/62 94 Room Air 09/07 2043 98.3 75 18 117/58 95 Room Air 09/07 1839 98.9 75 15 124/59 94 Room Air 09/07 1509 99.5 79 22 142/63 92 Room Air Intake & Output 09/08 1600 09/08 0800 09/08 0000 Intake Total 566 388 7943 Output Total 200 500 650 Balance 40 25 350 Intake, IV 525 1000 Intake, Oral 240 Number 0 Bowel Movements Output, Urine 200 500 650 Patient 72.575 kg Weight Weight Reported by Patient Measurement Method Physical Exam General Appearance: Alert, Oriented X3, Cooperative, No Acute Distress Other Physical Findings: GEN: well developed, well nourished middle aged woman in no acute distress HEENT: NCAT, PERRL, EOMI, anicteric sclera, MMM NECK: Supple, no JVD, trachea midline CARD: Normal S1/S2 w/o m/g/r; RRR PULM: CTA bilaterally ABD: Soft, NT, ND, BS + NEURO: Awake and alert, CN II-XII grossly intact EXT: normal pulses, no cyanosis, clubbing, or edema Current Medications: Current Medications Sig/Tati Start time Last Medication Dose Route Stop Time Status Admin Acetaminophen 650 MG .STK-MED ONE 09/08 621 DC PO 09/08 622 Acetaminophen 650 MG Q6P PRN 09/07 2044 AC 09/08 PO 06 Azathioprine 50 MG DAILY 09/08 1000 AC 09/08 PO 1035 Bupropion HCl 300 MG QAM 09/08 1000 AC 09/08 PO 1035 Ceftriaxone Sodium 1,000 MG Q24H 09/08 1900 AC IV Ceftriaxone Sodium 0 .STK-MED ONE 09/07 1852 DC .ROUTE Ceftriaxone Sodium 1,000 MG ONCE ONE 09/07 1845 DC 09/07 IV 09/07 1846 1855 Clonidine 0.1 MG BID 09/08 1000 AC 09/08 PO 1035 Cyclosporine 25 MG Q12 09/08 1000 AC 09/08 PO 1036 Cyclosporine 100 MG Q12 09/08 1000 AC 09/08 PO 1036 Cyclosporine 125 MG ONCE ONE 09/07 2215 DC 09/07 PO 09/07 2216 2257 Cyclosporine 100 MG Q12 09/07 2200 CAN PO Cyclosporine 25 MG Q12 09/07 2200 CAN PO Cyclosporine 25 MG ONCE ONE 09/07 2200 CAN PO 09/07 2300 Heparin Sodium 5,000 UNIT Q8 09/07 2200 AC 09/08 (Porcine) SC 1424 Hydrocodone Bitart/ 1 TAB Q6P PRN 09/07 2045 AC Acetaminophen PO Metoprolol Tartrate 100 MG BID 09/07 2200 AC 09/08 PO 1035 Omeprazole 40 MG DAILY AC 09/08 0700 AC 09/08 PO 0608 Prednisone 5 MG DAILY 09/08 1000 AC 09/08 PO 1035 Sertraline HCl 75 MG DAILY 09/08 1000 AC 09/08 PO 1035 Sodium Bicarbonate 650 MG BID 09/07 2200 AC 09/08 PO 1035 Sodium Chloride 1,000 ML Q13H 09/08 1430 UNVr IV Sodium Chloride 1,000 ML Q13H 09/07 2100 DC 09/07 IV 09/08 0959 2158 Sodium Chloride 1,000 ML BOLUS ONE 09/07 1700 DC 09/07 IV 09/07 1759 1701 Tizanidine HCl 2 MG AT BEDTIME 09/07 220 AC 09/07 PO 2256 Last 24 Hrs of Lab/Emiliano Results Last 24 Hrs of Labs/Mics: Laboratory Tests 09/08/17 1215: Anion Gap 14, Estimated GFR 14 L, BUN/Creatinine Ratio 22.4 09/08/17 0836: CBC w Diff MAN DIFF ORDERED, RBC 2.55 L, MCV 105.9 H, MCH 35.4 H, MCHC 33.4, RDW 18.7 H, MPV 7.6, Gran % 86.2 H, Lymphocytes % 8.4 L, Monocytes % 4.3, Eosinophils % 0.9, Basophils % 0.2, Absolute Granulocytes 6.2, Segmented Neutrophils 82 H, Band Neutrophils 5, Absolute Lymphocytes 0.6 L, Lymphocytes 7 L, Monocytes 5, Absolute Monocytes 0.3, Eosinophils 1, Absolute Eosinophils 0.1, Absolute Basophils 0, Nucleated RBCs 1 H, Platelet Estimate ADEQUATE, Normochromic RBCs VERIFIED, Polychromasia 1+, Poikilocytosis FEW, Macrocytic Cells 2+ 09/08/17 0600: Sodium Cancelled, Potassium Cancelled, Chloride Cancelled, Carbon Dioxide Cancelled, Anion Gap Cancelled, BUN Cancelled, Creatinine Cancelled, BUN/ Creatinine Ratio Cancelled 09/08/17 0400: Anion Gap 13, Estimated GFR 15 L, BUN/Creatinine Ratio 23.4 09/07/17 1818: Lactic Acid Cancelled 09/07/17 180: Urine Color YEL, Urine Clarity HAZY H, Urine pH 6.0, Ur Specific [place] 1.020, Urine Protein 100 H, Urine Ketones NEG, Urine Nitrite NEG, Urine Bilirubin NEG, Urine Urobilinogen 0.2, Ur Leukocyte Esterase SMALL H, Ur Microscopic SEDIMENT EXAMINED, Urine RBC FEW H, Urine WBC 5-10 H, Ur Epithelial Cells FEW, Urine Bacteria PACKD H, Urine Mucus RARE, Urine Hemoglobin NEG, Urine Glucose NEG 09/07/17 1809: Urine Osmolality 288 L, Ur Random Creatinine 41.5, Ur Random Sodium 41, Ur Random Potassium 38.6, Fraction Sodium Excret 2.4 H 09/07/17 1531: Anion Gap 14, Estimated GFR 15 L, BUN/Creatinine Ratio 23.8, Glucose 127 H, Serum Osmolality 294, Lactic Acid 0.7, Calcium 8.6, Magnesium 2.3, Total Bilirubin 0.7, AST 20, ALT 29, Alkaline Phosphatase 85, Creatine Kinase 65, Troponin I 0.02, Total Protein 6.1 L, Albumin 3.4 L, Globulin 2.7, Albumin/ Globulin Ratio 1.3, TSH 0.267 L, Free T4 1.96, Cortisol PM Sample 35.5 H, CBC w Diff NO MAN DIFF REQ, RBC 2.54 L, MCV 105.1 H, MCH 35.0 H, MCHC 33.3, RDW 17.9 H, MPV 7.0 L, Gran % 86.4 H, Lymphocytes % 7.1 L, Monocytes % 6.3, Eosinophils % 0.1, Basophils % 0.1, Absolute Granulocytes 7.4 H, Absolute Lymphocytes 0.6 L, Absolute Monocytes 0.5, Absolute Eosinophils 0, Absolute Basophils 0 Microbiology 09/07 1809 URINE ROUT: Urine Culture - RES GRAM NEGATIVE RODS 09/07 1517 NASOPHARYN: Influenza Virus A & B Rapid Smear - COMP Assessment/Plan Assessment: 66 year old woman with multiple medical problems seen for evaluation of weakness , low-grade fever, and multiple falls. She was given tamiflu by her PCP for concern of the flu which was found to be negative. Sodium was found to be low with UA positive. Patient was admitted to the general medicine floor for evaluation of her hyponatremia and possible UTI. Patient remains afebrile without leukocytosis or urinary symptoms on intravenous Ceftriaxone for her suspected UTI. Urine culture demonstrates growth of gram negative rods. She denies ever having had urinary symptoms. Nephrology evaluated the patient whom felt her presentation did not suggest SIADH and was in favor of giving more fluids. Problem List: -Weakness, fatigue -Urinary Tract Infection, possible pyelonephritis; on Ceftriaxone -Hyponatremia -Polycystic kidney disease s/p renal transplant (1997), on Azathioprine/ Cyclosporine -Chronic Kidney Disease -Mycardial infarction -Questionable takotsubo cardiomyopathy -Pseudotumor cerebri s/p lumbar-peritoneal shunt -Small vessel disease -Hypertension -Anxiety/Depression Plan -General Medicine -Strict Ins/Outs, daily weights -NS @ 75mL/hr -Ceftriaxone 1 g IV daily -Continue home meds: azathioprine, bupropion, clonidine, cyclosporine, metoprolol, omeprazole, prednisone, sertraline, sodium bicarb, zanaflex -Nephrology consult for hyponatremia / renal transplant patient -UCx: GNR -Check cyclosporine level in AM -Monitor renal function -Pain control with acetaminophen, vicodin -Heart Healthy Diet -DVT PPx with subcutaneous heparin -FULL CODE Problem List: 1. UTI (urinary tract infection) 2. Polycystic kidney disease Pain Ratin Pain Location: None Pain Goal: Remain pain free Pain Plan: See assessment Tomorrow's Labs & Rationales: CBC, BMP, Cyclosporine level
[2017-09-08 11:00] LABS: ABSOLUTE BASOPHIL COUNT 0 /CUMM (0.0-0.2); ABSOLUTE EOSINOPHIL COUNT 0.1 /CUMM (0.0-0.7); ABSOLUTE GRANULOCYTE CT 6.2 /CUMM (1.4-6.5); ABSOLUTE LYMPH COUNT 0.6 /CUMM (1.2-3.4); ABSOLUTE MONOCYTE COUNT 0.3 /CUMM (0.10-0.60); BASOPHIL % 0.2 % (0.0-2.0); EOSINOPHIL % 0.9 % (0-5); GRANULOCYTE % 86.2 % (42.2-75.2); MEAN CORPUSCULAR HGB 35.4 PG (27.0-31.0); MEAN CORPUSCULAR HGB CONC 33.4 G/DL (33.0-37.0); MEAN CORPUSCULAR VOLUME 105.9 FL (81.0-99.0); MEAN PLATELET VOLUME 7.6 FL (7.4-10.4); PLATELET COUNT 312 /CUMM (130-400); RBC DISTRIBUTION WIDTH 18.7 % (11.5-14.5); RED BLOOD CELL CT 2.55 /CUMM (4.20-5.40); WHITE BLOOD CELL COUNT 7.2 /CUMM (4.8-10.8)
--- NOTE | 2017-09-08 11:07 | Cons- Nephrology ---
General Information and HPI Consulting Request Date of Consult: 09/08/17 Requested By: Maribel Murguia MD Reason for Consult: Acute on chronic kidney disease Source of Information: patient, old records Exam Limitations: no limitations History of Present Illness: This 66-year-old woman has a history of chronic kidney disease going back at least 20 years. She is status post a living nonrelated transplant in 1997. Her serum creatinine has been well maintained on her current immunosuppressive regimen. However, it has been noted over the past year that there is been a slow but steady increase in the serum creatinine is she reports that at one juncture, she was referred back to [facility] by Juan Castillo MD in order to obtain a biopsy of the transplant. She now is admitted with feeling poorly since last and it was noted that her creatinine was up to 3.2. She denies any burton nausea or vomiting, but she does report that her intake has not been great. She reports low-grade temps only. She had been prescribed Tamiflu and low-dose by her primary caregiver. She reports she has never had any episodes of acute rejection. The worrisome issue again being that she has had Peterson low steady rise in her serum creatinine. Will need to review whether or not she's ever had any imaging of that kidney in the interim. She denies any burton tenderness over the graft she does feel uncomfortable when people palpated but this seems to be no different than her typical exam. Allergies/Medications Allergies: Coded Allergies: lisinopril (Severe, MOUTH SWELLING 09/08/15) Iodinated Contrast- Oral and IV Dye (IODINATED CONTRAST MEDIA - IV DYE) (Severe, KIDNEY TRANSPLANT 09/08/15) codeine (NAUSEA 09/08/15) hydrochlorothiazide (NAUSEA 09/08/15) Home Med List: Ascorbic Acid (Vitamin C) 500 MG CAPSULE.ER 1 CAP PO DAILY SUPP (Reported) Aspirin (Oscar Chewable Aspirin) 81 MG TAB.CHEW 81 MG PO D PER LIST (Reported ) Azathioprine 50 MG TABLET 1 TAB PO DAILY PER LIST (Reported) Bupropion HCl (Bupropion XL) 300 MG TAB.ER.24H 1 TAB PO QAM PER LIST ( Reported) Calcium Carbonate/Vitamin D3 (Calcium 500 + D Tablet) 500 MG-400 TABLET 1 TAB PO BID SUPPLEMENT (Reported) Clonidine HCl 0.1 MG TABLET 1 TAB PO BID PER LIST (Reported) Cyclobenzaprine HCl 10 MG TABLET 1 TAB PO BID PER LIST (Reported) Cyclosporine, Modified (Cyclosporine Modified) 100 MG CAPSULE 125 MG PO BID PER LIST (Reported) Epoetin Lukas (Epogen) (Unknown Strength) VIAL 50,000 UNITS IM Q3WKS ANEMIA ( Reported) Ergocalciferol (Vitamin D2) (Vitamin D2) 50,000 UNIT CAPSULE 1 CAP PO SEE ADMIN CRITERIA KIDNEYS (Reported) EVERY OTHER MONTH Esomeprazole (Nexium) 40 MG CAPSULE.DR 1 CAP PO DAILY PER LIST (Reported) Fexofenadine HCl (Laury Allergy) 180 MG TABLET 1 TAB PO DAILY ALLERGY ( Reported) Fish Oil/Borage/Flax/Om3,6,9#1 ([place] 3-6-9 1,200 MG Softgel) 1,200 MG CAPSULE 1 CAP PO DAILY SUPPLEMENT (Reported) Furosemide 40 MG TABLET 1 TAB PO BID PER LIST (Reported) Hydralazine HCl 100 MG TABLET 1 TAB PO TID PER LIST (Reported) Lorazepam 0.5 MG TABLET 1 TAB PO AT BEDTIME PER LIST (Reported) Metoprolol Tartrate 100 MG TABLET 1 TAB PO BID PER LIST (Reported) Mometasone Furoate (Nasonex) 50 MCG SPRAY.PUMP 2 SPRAY NASB DAILY PER LIST ( Reported) Nifedipine (Procardia XL) 90 MG TAB.ER.24 1 TAB PO DAILY PER LIST (Reported) Ondansetron (Zofran Odt) 4 MG ODT 1 TAB SL TID PRN NAUSEA Polyethylene Glycol 3350 (Miralax) 17 GRAM POWD.PACK 1 PAC PO DAILY CONSTIPATION (Reported) dissolve in water Potassium Chloride 20 MEQ TAB.ER.PRT 1 TAB PO DAILY PER LIST (Reported) Prednisone 5 MG TABLET 1 TAB PO DAILY PER LIST (Reported) Sertraline HCl 50 MG TABLET 75 MG PO DAILY PER LIST (Reported) Sodium Bicarbonate 650 MG TABLET 1 TAB PO BID PER LIST (Reported) Tizanidine HCl (Zanaflex) 2 MG CAPSULE 1 TAB PO BEDTIME HEADACHE (Reported) Valsartan 320 MG TABLET 1 TAB PO DAILY PER LIST (Reported) Current Medications: Current Medications Sig/Tati Start time Last Medication Dose Route Stop Time Status Admin Acetaminophen 650 MG Q6P PRN 09/07 2045 AC 09/08 PO 0622 Azathioprine 50 MG DAILY 09/08 1000 AC 09/08 PO 1035 Bupropion HCl 300 MG QAM 09/08 1000 AC 09/08 PO 1035 Ceftriaxone Sodium 1,000 MG Q24H 09/08 1900 AC IV Ceftriaxone Sodium 0 .STK-MED ONE 09/07 1852 DC .ROUTE Ceftriaxone Sodium 1,000 MG ONCE ONE 09/07 1845 DC 09/07 IV 09/07 1846 1855 Clonidine 0.1 MG BID 09/08 1000 AC 09/08 PO 1035 Cyclosporine 25 MG Q12 09/08 1000 AC 09/08 PO 1036 Cyclosporine 100 MG Q12 09/08 1000 AC 09/08 PO 1036 Cyclosporine 125 MG ONCE ONE 09/07 2215 DC 09/07 PO 09/07 2216 2257 Cyclosporine 100 MG Q12 09/07 2200 CAN PO Cyclosporine 25 MG Q12 09/07 2200 CAN PO Cyclosporine 25 MG ONCE ONE 09/07 2200 CAN PO 09/07 2300 Heparin Sodium 5,000 UNIT Q8 09/07 2200 AC 09/08 (Porcine) SC 0608 Hydrocodone Bitart/ 1 TAB Q6P PRN 09/07 2045 AC Acetaminophen PO Metoprolol Tartrate 100 MG BID 09/07 2200 AC 09/08 PO 1035 Omeprazole 40 MG DAILY AC 09/08 0700 AC 09/08 PO 0608 Prednisone 5 MG DAILY 09/08 1000 AC 09/08 PO 1035 Sertraline HCl 75 MG DAILY 09/08 1000 AC 09/08 PO 1035 Sodium Bicarbonate 650 MG BID 09/07 2200 AC 09/08 PO 1035 Sodium Chloride 1,000 ML Q13H 09/07 2100 DC 09/07 IV 09/08 0959 2158 Sodium Chloride 1,000 ML BOLUS ONE 09/07 1700 DC 09/07 IV 09/07 1759 1701 Tizanidine HCl 2 MG AT BEDTIME 09/07 2200 AC 09/07 PO 2256 Review of Systems Review of Systems Constitutional: Reports: fever, malaise, weakness. Denies: chills, diaphoresis. EENTM: Reports: visual changes. Denies: nasal congestion. Cardiovascular: Denies: chest pain, edema, orthopena, palpitations, peripheral edema. Respiratory: Denies: cough, hemoptysis, orthopnea, short of breath, sputum production. GI: Reports: nausea. Denies: bloating, constipation, diarrhea, distention, bowel incontinence, melena, bloody stool, changes in stool, vomiting. Genitourinary: Denies: dysuria, frequency, hematuria, hesitation, nocturia, pain. Musculoskeletal: Reports: joint pain. Denies: back pain, joint swelling, muscle pain, muscle stiffness. Skin: Denies: rash. Neurological/Psychological: Reports: depressed, numbness, tingling. Denies: dementia, emotional problems, petit mal seizures, tonic-clonic seizures. Hematologic/Endocrine: Reports: bruising. Denies: bleeding, polyuria, polydipsia. 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 FH: brain aneurysm Polycystic kidney disease BROTHER Polycystic kidney disease Psychosocial History Who Do You Live With? self Services at Home: None Primary Language: Tristanian Smoking Status: Former Smoker ETOH Use: occasional use Living Will? yes Functional Ability ADLs Independent: dressing, eating, toileting, bathing. Ambulation: cane IADLs Independent: shopping, housework, finances, food prep, telephone, transportation , medication admin. Exam & Diagnostic Data Vital Signs and I&O Vital Signs Date Time Temp Pulse Resp B/P B/P Pulse O2 O2 Flow FiO2 Mean Ox Delivery Rate 09/08 1035 78 13209/08 1035 78 13209/08 0659 98.4 78 20 132/62 93 09/07 2256 78 134/62 09/07 2230 99.6 78 20 134/62 94 Room Air 09/07 2043 98.3 75 18 117/58 95 Room Air 09/07 1839 98.9 75 15 124/59 94 Room Air 09/07 1509 99.5 79 22 142/63 92 Room Air Intake & Output 09/08 1600 09/08 04009/06 040 Intake Total 525 1000 Output Total 600 650 Balance -75 350 Intake, IV 525 1000 Output, Urine 600 650 Patient 160 lb 160 lb Weight Weight Reported by Patient Reported by Patient Measurement Method Physical Exam General Appearance: well developed/nourished, no apparent distress, obese, chronically ill Head: atraumatic, normal appearance Eyes: Bilateral: normal appearance, PERRL, EOMI. Ears, Nose, Throat: normal pharynx, hearing grossly normal Neck: normal inspection, supple, trachea mid line, no midline tenderness Respiratory: normal breath sounds, chest non-tender, no respiratory distress, lungs clear Cardiovascular: regular rate/rhythm, edema Peripheral Pulses: 3+ popliteal (R), 3+ popliteal (L), 3+ tibialis posterior (R), 3+ tibialis posterior (L), 3+ dorsalis pedis (R), 3+ dorsalis pedis (L) Gastrointestinal: normal bowel sounds, soft, non-tender, no organomegaly, well healed surgical scar, no tenderness over the graft Back: normal inspection, normal range of motion, vertebral tenderness Extremities: normal inspection, normal capillary refill, normal range of motion, no edema, well healed scar over R knee Results Pertinent Lab Results: Laboratory Tests 09/08 09/08 09/08 09/07 0836 0600 0400 1818 Chemistry Sodium (137 - 145 mmol/L) Cancelled 129 L Potassium (3.5 - 5.1 mmol/L) Cancelled 4.1 Chloride (98 - 107 mmol/L) Cancelled 98 Carbon Dioxide (22 - 30 mmol/L) Cancelled 18 L Anion Gap (5 - 16) Cancelled 13 BUN (7 - 17 mg/dL) Cancelled 75 H Creatinine (0.5 - 1.0 mg/dL) Cancelled 3.2 H Estimated GFR (>60 ml/min) 15 L BUN/Creatinine Ratio (7 - 25 %) Cancelled 23.4 Lactic Acid Cancelled Hematology CBC w Diff Pending WBC Pending RBC Pending Hgb Pending Hct Pending MCV Pending MCH Pending MCHC Pending RDW Pending Plt Count Pending MPV Pending 09/07 09/07 1809 1809 Urines Urine Color (YEL,AMB,STR) YEL Urine Clarity (CLEAR) HAZY H Urine pH (5.0 - 8.0) 6.0 Ur Specific [place] (1.001 - 1.035) 1.020 Urine Protein (NEG,<30 MG/DL) 100 H Urine Ketones (NEG) NEG Urine Nitrite (NEG) NEG Urine Bilirubin (NEG) NEG Urine Urobilinogen (0.1 - 1.0 EU/dl) 0.2 Ur Leukocyte Esterase (NEG) SMALL H Ur Microscopic SEDIMENT EXAMINED Urine RBC (0 - 5 /HPF) FEW H Urine WBC (0 - 2 /HPF) 5-10 H Ur Epithelial Cells (NONE,FEW) FEW Urine Bacteria (NEG/NONE) PACKD H Urine Mucus (FEW,NONE) RARE Urine Hemoglobin (NEG) NEG Urine Osmolality (300 - 1000 MOSM/KG) 288 L Ur Random Creatinine (mg/dL) 41.5 Ur Random Sodium (30 - 90 mmol/L) 41 Ur Random Potassium (mmol/L) 38.6 Fraction Sodium Excret (<1% %) 2.4 H Urine Glucose (N MG/DL) NEG 09/07 1531 Chemistry Sodium (137 - 145 mmol/L) 131 L Potassium (3.5 - 5.1 mmol/L) 4.5 Chloride (98 - 107 mmol/L) 97 L Carbon Dioxide (22 - 30 mmol/L) 21 L Anion Gap (5 - 16) 14 BUN (7 - 17 mg/dL) 76 H Creatinine (0.5 - 1.0 mg/dL) 3.2 H Estimated GFR (>60 ml/min) 15 L BUN/Creatinine Ratio (7 - 25 %) 23.8 Glucose (65 - 99 mg/dL) 127 H Serum Osmolality (285 - 295 MOSM/KG) 294 Lactic Acid (0.7 - 2.1 mmol/L) 0.7 Calcium (8.4 - 10.2 mg/dL) 8.6 Magnesium (1.6 - 2.3 mg/dL) 2.3 Total Bilirubin (0.2 - 1.3 mg/dL) 0.7 AST (14 - 36 U/L) 20 ALT (9 - 52 U/L) 29 Alkaline Phosphatase (<127 U/L) 85 Creatine Kinase (30 - 135 U/L) 65 Troponin I (< 0.11 ng/ml) 0.02 Total Protein (6.3 - 8.2 g/dL) 6.1 L Albumin (3.5 - 5.0 g/dL) 3.4 L Globulin (1.9 - 4.2 gm/dL) 2.7 Albumin/Globulin Ratio (1.1 - 2.2 %) 1.3 TSH (0.270 - 4.200 uIU/mL) 0.267 L Free T4 (0.78 - 2.44 ng/dL) 1.96 Cortisol PM Sample (1.7 - 14.1) 35.5 H Hematology CBC w Diff NO MAN DIFF REQ WBC (4.8 - 10.8 /CUMM) 8.6 RBC (4.20 - 5.40 /CUMM) 2.54 L Hgb (12.0 - 16.0 G/DL) 8.9 L Hct (37 - 47 %) 26.6 L MCV (81.0 - 99.0 FL) 105.1 H MCH (27.0 - 31.0 PG) 35.0 H MCHC (33.0 - 37.0 G/DL) 33.3 RDW (11.5 - 14.5 %) 17.9 H Plt Count (130 - 400 /CUMM) 326 MPV (7.4 - 10.4 FL) 7.0 L Gran % (42.2 - 75.2 %) 86.4 H Lymphocytes % (20.5 - 51.1 %) 7.1 L Monocytes % (1.7 - 9.3 %) 6.3 Eosinophils % (0 - 5 %) 0.1 Basophils % (0.0 - 2.0 %) 0.1 Absolute Granulocytes (1.4 - 6.5 /CUMM) 7.4 H Absolute Lymphocytes (1.2 - 3.4 /CUMM) 0.6 L Absolute Monocytes (0.10 - 0.60 /CUMM) 0.5 Absolute Eosinophils (0.0 - 0.7 /CUMM) 0 Absolute Basophils (0.0 - 0.2 /CUMM) 0 Assessment/Plan Assessment/Recommendations Assessment: 1. Acute kidney injury. Her serum creatinine is up to 3.2. The usual differential here would be given the fact that she is status post a living unrelated transplant, consideration to acute rejection always needs to be taken also however, she has bacteria in the urine as well as on the urinalysis positive agree leukocyte esterase all point to a cystitis/pyelonephritis his posttransplantation. She says she has discomfort when palpating or should say when someone palpates the graft in the right lower quadrant, however this is no different than usual. She denies pain over the graft. The other issue here of course would be is there is some degree of volume depletion in this woman with poor intake since coupled with her taking her prescribed medications of furosemide 40 mg twice a day. 2 hyponatremia. In the setting of acute kidney injury this is not SIADH. This may be related to some degree of hypovolemia. Would favor continuing normal saline for now. 3. History of heart disease. She had an FL in the perioperative period with a transplant. Apparently her echocardiogram has been normal she does not recall what if any interventions have been undertaken since then. She sees Dr. Monae 1C year. She has been told that there is no lasting damage to her heart after that episode. 4. Autosomal dominant polycystic kidney disease. Of note, her father experienced sudden in his early 40s. That was attributed to heart disease , however, when it was discovered that the patient's brother had autosomal dominant polycystic kidney disease, the question was raised as to whether or not this was actually related to a subarachnoid hemorrhage. The patient subsequently had an MRI of the head which proved to be negative. 5. Daily weights, strict I's and O's 6. Would check a cyclosporine level in the morning. 7. Otherwise continue the same immunosuppression. Recommendations: 1. Would continue the IV fluids. Preferably normal saline. Keep in mind that the usual sodium disturbance seen with furosemide is hypernatremia. 2 strict I's and O's and daily weights 3. Check cyclosporine level morning. 4. At this point I don't see any reason to consider transferring TL basis of fears related to acute rejection. 5. Will review her office chart and see if a random protein creatinine ratio has been sent. 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
--- NOTE | 2017-09-08 11:13 | PN- Att Addend ---
Attending Addendum Attending Brief Note Patient seen and examined, feeling slightly better but not back to baseline. Still feels somewhat weak. Labs from this morning continue to show worsening renal function as well as hyponatremia. Pt afebrile. Did c/o some back when sat on recliner. Vital Signs Date Time Temp Pulse Resp B/P B/P Pulse O2 O2 Flow FiO2 Mean Ox Delivery Rate 09/08 1035 78 132/62 09/08 1035 78 132/62 09/08 0659 98.4 78 20 132/62 93 09/07 2256 78 134/62 09/07 2230 99.6 78 20 134/62 94 Room Air 09/07 2043 98.3 75 18 117/58 95 Room Air 09/07 1839 98.9 75 15 124/59 94 Room Air 09/07 1509 99.5 79 22 142/63 92 Room Air on exam; aox3, nad. cv; s1,s2, rrr resp; clear abd; soft, nt, bs+ ext; no edema. Laboratory Tests 09/08 09/08 09/08 09/07 0836 0600 0400 1818 Chemistry Sodium (137 - 145 mmol/L) Cancelled 129 L Potassium (3.5 - 5.1 mmol/L) Cancelled 4.1 Chloride (98 - 107 mmol/L) Cancelled 98 Carbon Dioxide (22 - 30 mmol/L) Cancelled 18 L Anion Gap (5 - 16) Cancelled 13 BUN (7 - 17 mg/dL) Cancelled 75 H Creatinine (0.5 - 1.0 mg/dL) Cancelled 3.2 H Estimated GFR (>60 ml/min) 15 L BUN/Creatinine Ratio (7 - 25 %) Cancelled 23.4 Lactic Acid Cancelled Hematology CBC w Diff Pending WBC Pending RBC Pending Hgb Pending Hct Pending MCV Pending MCH Pending MCHC Pending RDW Pending Plt Count Pending MPV Pending 09/07 09/07 1809 1809 Urines Urine Color (YEL,AMB,STR) YEL Urine Clarity (CLEAR) HAZY H Urine pH (5.0 - 8.0) 6.0 Ur Specific [place] (1.001 - 1.035) 1.020 Urine Protein (NEG,<30 MG/DL) 100 H Urine Ketones (NEG) NEG Urine Nitrite (NEG) NEG Urine Bilirubin (NEG) NEG Urine Urobilinogen (0.1 - 1.0 EU/dl) 0.2 Ur Leukocyte Esterase (NEG) SMALL H Ur Microscopic SEDIMENT EXAMINED Urine RBC (0 - 5 /HPF) FEW H Urine WBC (0 - 2 /HPF) 5-10 H Ur Epithelial Cells (NONE,FEW) FEW Urine Bacteria (NEG/NONE) PACKD H Urine Mucus (FEW,NONE) RARE Urine Hemoglobin (NEG) NEG Urine Osmolality (300 - 1000 MOSM/KG) 288 L Ur Random Creatinine (mg/dL) 41.5 Ur Random Sodium (30 - 90 mmol/L) 41 Ur Random Potassium (mmol/L) 38.6 Fraction Sodium Excret (<1% %) 2.4 H Urine Glucose (N MG/DL) NEG 09/07 1531 Chemistry Sodium (137 - 145 mmol/L) 131 L Potassium (3.5 - 5.1 mmol/L) 4.5 Chloride (98 - 107 mmol/L) 97 L Carbon Dioxide (22 - 30 mmol/L) 21 L Anion Gap (5 - 16) 14 BUN (7 - 17 mg/dL) 76 H Creatinine (0.5 - 1.0 mg/dL) 3.2 H Estimated GFR (>60 ml/min) 15 L BUN/Creatinine Ratio (7 - 25 %) 23.8 Glucose (65 - 99 mg/dL) 127 H Serum Osmolality (285 - 295 MOSM/KG) 294 Lactic Acid (0.7 - 2.1 mmol/L) 0.7 Calcium (8.4 - 10.2 mg/dL) 8.6 Magnesium (1.6 - 2.3 mg/dL) 2.3 Total Bilirubin (0.2 - 1.3 mg/dL) 0.7 AST (14 - 36 U/L) 20 ALT (9 - 52 U/L) 29 Alkaline Phosphatase (<127 U/L) 85 Creatine Kinase (30 - 135 U/L) 65 Troponin I (< 0.11 ng/ml) 0.02 Total Protein (6.3 - 8.2 g/dL) 6.1 L Albumin (3.5 - 5.0 g/dL) 3.4 L Globulin (1.9 - 4.2 gm/dL) 2.7 Albumin/Globulin Ratio (1.1 - 2.2 %) 1.3 TSH (0.270 - 4.200 uIU/mL) 0.267 L Free T4 (0.78 - 2.44 ng/dL) 1.96 Cortisol PM Sample (1.7 - 14.1) 35.5 H Hematology CBC w Diff NO MAN DIFF REQ WBC (4.8 - 10.8 /CUMM) 8.6 RBC (4.20 - 5.40 /CUMM) 2.54 L Hgb (12.0 - 16.0 G/DL) 8.9 L Hct (37 - 47 %) 26.6 L MCV (81.0 - 99.0 FL) 105.1 H MCH (27.0 - 31.0 PG) 35.0 H MCHC (33.0 - 37.0 G/DL) 33.3 RDW (11.5 - 14.5 %) 17.9 H Plt Count (130 - 400 /CUMM) 326 MPV (7.4 - 10.4 FL) 7.0 L Gran % (42.2 - 75.2 %) 86.4 H Lymphocytes % (20.5 - 51.1 %) 7.1 L Monocytes % (1.7 - 9.3 %) 6.3 Eosinophils % (0 - 5 %) 0.1 Basophils % (0.0 - 2.0 %) 0.1 Absolute Granulocytes (1.4 - 6.5 /CUMM) 7.4 H Absolute Lymphocytes (1.2 - 3.4 /CUMM) 0.6 L Absolute Monocytes (0.10 - 0.60 /CUMM) 0.5 Absolute Eosinophils (0.0 - 0.7 /CUMM) 0 Absolute Basophils (0.0 - 0.2 /CUMM) 0 A/P; 66 y/o F with pmh sig for polycystic kidney disease s/p kidney transplant in 1997 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 Etiology of hyponatremia is not very clear. As d/w with nephrology, she might be volume depleted and will require IV fluids. We'll monitor the creatinine. Urine culture growing gram-negative rods. Patient currently on treatment with ceftriaxone. Will continue that and follow-up on the cultures. Nephrology recommends checking cyclosporine levels in the morning. Continue all other current meds. DVt px; Hep sq.
[2017-09-08 14:17] VITALS: BP 130/70
[2017-09-08 22:19] VITALS: BP 122/74
[2017-09-09 07:00] VITALS: BP 132/80
--- NOTE | 2017-09-09 07:22 | PN- Housestaff ---
See Addendum Emma PENA,José 09/09/17 0722: Subjective Follow-up For: UTI Hyponatremia weakness Subjective: Patient seen and examined. She is seen sitting upright in bed resting comfortably. She appears to be in no acute distress. She reports feeling mildly nauseated today and is requesting some Zofran. She otherwise feels well and has no new complaints. She denies any fever, chills, chest pain, or shortness of breath. Review of Systems Constitutional: Reports: see HPI. Objective Last 24 Hrs of Vital Signs/I&O Vital Signs Date Time Temp Pulse Resp B/P B/P Pulse O2 O2 Flow FiO2 Mean Ox Delivery Rate 09/09 0748 79 132/80 09/09 0748 79 132/80 09/09 0700 98.9 79 20 132/80 95 Room Air 09/08 2219 99.0 84 20 122/74 94 Room Air 09/08 205 99.0 84 20 122/74 09/08 205 99.0 84 20 122/74 09/08 1417 98.3 68 20 130/70 96 Room Air 09/08 1035 78 132/62 09/08 1035 78 132/62 Intake & Output 09/09 1600 09/09 0800 09/09 0000 Intake Total 700 400 Output Total Balance 700 400 Intake, IV 600 300 Intake, Oral 100 100 Number 1 Bowel Movements Patient 89.358 kg Weight Physical Exam General Appearance: Alert, Oriented X3, Cooperative, No Acute Distress Other Physical Findings: GEN: well developed, well nourished middle aged woman in no acute distress HEENT: NCAT, PERRL, EOMI, anicteric sclera, MMM NECK: Supple, no JVD, trachea midline CARD: Normal S1/S2 w/o m/g/r; RRR PULM: CTA bilaterally ABD: Soft, NT, ND, BS + NEURO: Awake and alert, CN II-XII grossly intact EXT: normal pulses, no cyanosis, clubbing, or edema Current Medications: Current Medications Sig/Tati Start time Last Medication Dose Route Stop Time Status Admin Acetaminophen 650 MG Q6P PRN 09/07 2044 AC 09/08 PO 0622 Azathioprine 50 MG DAILY 09/08 1000 AC 09/09 PO 0747 Bupropion HCl 300 MG QAM 09/08 1000 AC 09/09 PO 0750 Ceftriaxone Sodium 1,000 MG Q24H 09/08 1900 AC 09/08 IV 1847 Clonidine 0.1 MG BID 09/08 1000 AC 09/09 PO 0748 Cyclosporine 25 MG Q12 09/08 1000 AC 09/09 PO 0748 Cyclosporine 100 MG Q12 09/08 1000 AC 09/09 PO 0748 Heparin Sodium 5,000 UNIT Q8 09/07 2200 AC 09/09 (Porcine) SC 0528 Hydrocodone Bitart/ 1 TAB Q6P PRN 09/07 2045 AC Acetaminophen PO Metoprolol Tartrate 100 MG BID 09/07 2200 AC 09/09 PO 0748 Omeprazole 40 MG DAILY AC 09/08 0700 AC 09/09 PO 0531 Ondansetron HCl 4 MG Q6P PRN 09/09 0845 AC 09/09 IV 0852 Polyethylene Glycol 17 GM DAILY PRN 09/09 0500 AC PO Prednisone 5 MG DAILY 09/08 1000 AC 09/09 PO 0749 Sertraline HCl 75 MG DAILY 09/08 1000 AC 09/09 PO 0750 Sodium Bicarbonate 650 MG BID 09/07 2200 AC 09/09 PO 0749 Sodium Chloride 1,000 ML Q13H 09/08 1430 AC 09/08 IV 1520 Tizanidine HCl 2 MG AT BEDTIME 09/07 2200 AC 09/08 PO 2054 Last 24 Hrs of Lab/Emiliano Results Last 24 Hrs of Labs/Mics: Laboratory Tests 09/09/17 0710: Anion Gap 17 H, Estimated GFR 14 L, BUN/Creatinine Ratio 23.3, CBC w Diff Pending, WBC Pending, RBC Pending, Hgb Pending, Hct Pending, MCV Pending, MCH Pending, MCHC Pending, RDW Pending, Plt Count Pending, MPV Pending, Gran % Pending, Lymphocytes % Pending, Monocytes % Pending, Eosinophils % Pending, Basophils % Pending, Absolute Granulocytes Pending, Absolute Lymphocytes Pending , Absolute Monocytes Pending, Absolute Eosinophils Pending, Absolute Basophils Pending, Cyclosporine Pending 09/08/17 1215: Anion Gap 14, Estimated GFR 14 L, BUN/Creatinine Ratio 22.4 Assessment/Plan Assessment: 66 year old woman with multiple medical problems seen for evaluation of weakness , low-grade fever, and multiple falls. She was given tamiflu by her PCP for concern of the flu which was found to be negative. Sodium was found to be low with UA positive. Patient was admitted to the general medicine floor for evaluation of her hyponatremia and possible UTI. She continues to remain afebrile without leukocytosis on intravenous ceftriaxone for UTI. Urine culture now demonstrates growth of pansensitive E. Coli for which she is being starting on oral keflex for a 7 day total antibiotic course. Creatinine remains at 3.3 while on intravenous fluids. Sodium increased to 133 from 130. PT Cyclosporine Problem List: -Urinary Tract Infection, possible pyelonephritis; on Ceftriaxone -Hyponatremia -Polycystic kidney disease s/p renal transplant (1997), on Azathioprine/ Cyclosporine -Acute Kidney Injury on Chronic Kidney Disease -Mycardial infarction -Questionable takotsubo cardiomyopathy -Pseudotumor cerebri s/p lumbar-peritoneal shunt -Small vessel disease -Hypertension -Anxiety/Depression Plan -General Medicine -Strict Ins/Outs, daily weights -Avoid nephrotoxic agents -NS @ 75mL/hr -Ceftriaxone changed to keflex for 7 total antibiotic days -Hold valsartan and furosemide for acute kidney injury -Continue home meds: azathioprine, bupropion, clonidine, cyclosporine, metoprolol, omeprazole, prednisone, sertraline, sodium bicarb, zanaflex -Nephrology consult for hyponatremia / renal transplant patient -UCx: Pansensitive E. Coli -Check cyclosporine level in AM -Monitor renal function -Pain control with acetaminophen, vicodin -Heart Healthy Diet -DVT PPx with subcutaneous heparin -FULL CODE Problem List: 1. UTI (urinary tract infection) Pain Ratin Pain Location: None Pain Goal: Remain pain free Pain Plan: See assessment Tomorrow's Labs & Rationales: MARCELO Murguia MD,Maribel 09/09/17 1126: Attending MD Review Statement Attending Statement Attending MD Statement: examined this patient, discuss w/resident/PA/DIRECT SERVICE PROVIDER, agreed w/resident/PA/DIRECT SERVICE PROVIDER, reviewed EMR data (avail), discussed with nursing, discussed with case mgmt, reviewed images, amended to note Attending Assessment/Plan: Patient seen and examined, not feeling that well today. Did not get a good night sleep. She said that she performed poorly with physical therapy. She currently denies any pain. Vital Signs Date Time Temp Pulse Resp B/P B/P Pulse O2 O2 Flow FiO2 Mean Ox Delivery Rate 09/09 0748 79 132/80 09/09 0748 79 132/80 09/09 0700 98.9 79 20 132/80 95 Room Air 09/08 2218 99.0 84 20 122/ 94 Room Air 09/08 2052 99.0 84 20 122/74 09/08 2052 99.0 84 20 122/74 09/08 1417 98.3 68 20 130/70 96 Room Air on exam; aox3, nad cv; s1, s2, rrr resp; clear abd; soft, nt, bs+ ext; no edema. Laboratory Tests 09/09 09/08 0710 1215 Chemistry Sodium (137 - 145 mmol/L) 133 L 130 L Potassium (3.5 - 5.1 mmol/L) 4.2 4.2 Chloride (98 - 107 mmol/L) 100 97 L Carbon Dioxide (22 - 30 mmol/L) 16 L 19 L Anion Gap (5 - 16) 17 H 14 BUN (7 - 17 mg/dL) 77 H 74 H Creatinine (0.5 - 1.0 mg/dL) 3.3 H 3.3 H Estimated GFR (>60 ml/min) 14 L 14 L BUN/Creatinine Ratio (7 - 25 %) 23.3 22.4 Hematology CBC w Diff MAN DIFF ORDERED WBC (4.8 - 10.8 /CUMM) 6.4 RBC (4.20 - 5.40 /CUMM) 2.50 L Hgb (12.0 - 16.0 G/DL) 8.6 L Hct (37 - 47 %) 25.8 L MCV (81.0 - 99.0 FL) 103.1 H MCH (27.0 - 31.0 PG) 34.5 H MCHC (33.0 - 37.0 G/DL) 33.5 RDW (11.5 - 14.5 %) 18.1 H Plt Count (130 - 400 /CUMM) 326 MPV (7.4 - 10.4 FL) 7.8 Gran % (42.2 - 75.2 %) 79.5 H Lymphocytes % (20.5 - 51.1 %) 11.1 L Monocytes % (1.7 - 9.3 %) 6.1 Eosinophils % (0 - 5 %) 3.2 Basophils % (0.0 - 2.0 %) 0.1 Absolute Granulocytes (1.4 - 6.5 /CUMM) 5.1 Segmented Neutrophils (42.2 - 75.2 %) 81 H Band Neutrophils (0.0 - 5.0 %) 4 Absolute Lymphocytes (1.2 - 3.4 /CUMM) 0.7 L Lymphocytes (20.5 - 51.1 %) 11 L Monocytes (1.7 - 9.3 %) 4 Absolute Monocytes (0.10 - 0.60 /CUMM) 0.4 Absolute Eosinophils (0.0 - 0.7 /CUMM) 0.2 Absolute Basophils (0.0 - 0.2 /CUMM) 0 Platelet Estimate (ADEQUATE) ADEQUATE Normochromic RBCs VERIFIED Anisocytosis 1+ Macrocytic Cells 1+ Other Body Source Fld Total RBCs Counted (%) 100 Toxicology Cyclosporine Pending A/P: 66 y/o F with pmh sig for polycystic kidney disease s/p kidney transplant in 1997 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 Sodium improving but creatinine remains in the same range. Will change antibiotics to by mouth Keflex. Urine culture growing Escherichia coli. We will try melatonin 3 mg at night. Patient to bring her home medication list. Will follow further nephrology recommendations. Continue all other current meds. DVT px; hep sq. Pt working with PT.
[2017-09-09 08:56] LABS: ABSOLUTE BASOPHIL COUNT 0 /CUMM (0.0-0.2); ABSOLUTE EOSINOPHIL COUNT 0.2 /CUMM (0.0-0.7); ABSOLUTE GRANULOCYTE CT 5.1 /CUMM (1.4-6.5); ABSOLUTE LYMPH COUNT 0.7 /CUMM (1.2-3.4); ABSOLUTE MONOCYTE COUNT 0.4 /CUMM (0.10-0.60); BASOPHIL % 0.1 % (0.0-2.0); EOSINOPHIL % 3.2 % (0-5); GRANULOCYTE % 79.5 % (42.2-75.2); HEMATOCRIT 25.8 % (37-47); MEAN CORPUSCULAR HGB 34.5 PG (27.0-31.0); MEAN CORPUSCULAR HGB CONC 33.5 G/DL (33.0-37.0); MEAN CORPUSCULAR VOLUME 103.1 FL (81.0-99.0); MEAN PLATELET VOLUME 7.8 FL (7.4-10.4); PLATELET COUNT 326 /CUMM (130-400); RBC DISTRIBUTION WIDTH 18.1 % (11.5-14.5); WHITE BLOOD CELL COUNT 6.4 /CUMM (4.8-10.8)
[2017-09-09] MEDS ORDERED: KEFLEX500 M1 PO (10:30)
--- NOTE | 2017-09-09 10:31 | Patient Discharge Instructions ---
Discharge Instructions General Discharge Information Special Instructions: Take keflex as directed. Continue all your previous medicaitons as directed. Be sure to stay hydrated. Follow up with your transplant [place] aide after discharge. Acute Coronary Syndrome Inclusion Criteria At DC or during hospital stay patient has or had the following: ACS DIAGNOSIS No Discharge Core Measures Meds if any: Prescribed or Continued at Discharge Meds if any: NOT Prescribed or Continued at Discharge Congestive Heart Failure Inclusion Criteria At DC or during hospital stay patient has or had the following: CHF DIAGNOSIS No Discharge Core Measures Meds if any: Prescribed or Continued at Discharge Meds if any: NOT Prescribed or Continued at Discharge Cerebrovascular accident Inclusion Criteria At DC or during hospital stay patient has or had the following: CVA/TIA Diagnosis No Discharge Core Measures Meds if any: Prescribed or Continued at Discharge Meds if any: NOT Prescribed or Continued at Discharge Venous thromboembolism Inclusion Criteria VTE Diagnosis No VTE Type NONE VTE Confirmed by (Test) NONE Discharge Core Measures - Per Current guidelines, there needs to be overlap - treatment for the first 5 days of Warfarin therapy. - If discharged on Warfarin prior to 5 days of - overlap therapy, the patient will need to be - assessed for post discharge needs including - *Post discharge parental anticoagulation - *Warfarin and/or parental anticoagulation education - *Follow up date to check INR post discharge At least 5 days overlap therapy as Inpatient No Meds if any: Prescribed or Continued at Discharge Note: Overlap Therapy is Warfarin and Anticoagulant Meds if any: NOT Prescribed or Continued at Discharge
--- NOTE | 2017-09-09 11:35 | PN- Nephrology ---
Assessment/Plan Nephrology Assessment: 1. Acute kidney injury. Her serum creatinine is up to 3.3. Still suspect that this is related to the cystitis 2 hyponatremia. In the setting of acute kidney injury this is not SIADH. In the setting of chronic renal failure could not be called SIADH. The sodium is a little bit better today 3. History of heart disease. She had an AR in the perioperative period with a transplant. 4. Autosomal dominant polycystic kidney disease. 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 Status post Living unrelated transplant Daily Suggestion: 1. continue fluids 2. Continue antibiotics and intravenous pressors Subjective Subjective: Patient fell a bit wobbly when out for PT. Otherwise she feels perhaps a little bit better. Objective Vital Signs and I&Os Vital Signs Date Time Temp Pulse Resp B/P B/P Pulse O2 O2 Flow FiO2 Mean Ox Delivery Rate 09/09 1351 97.8 79 20 138/70 95 Room Air 09/09 0748 79 132/80 09/09 0748 79 132/80 09/09 0700 98.9 79 20 132/80 95 Room Air 09/08 2219 99.0 84 20 122/74 94 Room Air 09/08 2052 99.0 84 20 122/74 09/08 2052 99.0 84 20 122/74 Intake & Output 09/09 1600 09/09 0400 09/08 1600 09/08 0400 09/07 1600 09/07 0400 Intake Total 700 822 300 9259 Output Total 400 900 650 Balance 300 400 -135 350 Intake, IV 600 870 198 3094 Intake, Oral 100 100 240 Number 4 0 Bowel Movements Output, Urine 400 900 650 Patient 197 lb 160 lb 160 lb Weight Weight Reported by Patient Reported by Patient Measurement Method Physical Exam: General Appearance: well developed/nourished, no apparent distress, obese, chronically ill Head: atraumatic, normal appearance Eyes: Bilateral: normal appearance, PERRL, EOMI. Ears, Nose, Throat: normal pharynx, hearing grossly normal Neck: normal inspection, supple, trachea mid line, no midline tenderness Respiratory: normal breath sounds, chest non-tender, no respiratory distress, lungs clear Cardiovascular: regular rate/rhythm, edema Gastrointestinal: normal bowel sounds, soft, non-tender, no organomegaly, well healed surgical scar, no tenderness over the graft Back: normal inspection, normal range of motion, vertebral tenderness Extremities: normal inspection, normal capillary refill, normal range of motion, no edema, well healed scar over R knee Current Medications: Current Medications Sig/Tati Start time Last Medication Dose Route Stop Time Status Admin Acetaminophen 650 MG Q6P PRN 09/07 204 AC 09/08 PO 0622 Azathioprine 50 MG DAILY 09/08 1000 AC 09/09 PO 0747 Bupropion HCl 300 MG QAM 09/08 1000 AC 09/09 PO 0750 Ceftriaxone Sodium 1,000 MG Q24H 09/08 1900 DC 09/08 IV 1847 Cephalexin 250 MG Q8 09/09 1400 AC 09/09 PO 1414 Clonidine 0.1 MG BID 09/08 1000 AC 09/09 PO 0748 Cyclosporine 25 MG Q12 09/08 1000 AC 09/09 PO 0748 Cyclosporine 100 MG Q12 09/08 1000 AC 09/09 PO 0748 Heparin Sodium 5,000 UNIT Q8 09/07 2200 AC 09/09 (Porcine) SC 1300 Hydrocodone Bitart/ 1 TAB Q6P PRN 09/07 2044 AC Acetaminophen PO Melatonin 3 MG AT BEDTIME 09/09 2200 AC PO Metoprolol Tartrate 100 MG BID 09/07 2200 AC 09/09 PO 0748 Omeprazole 40 MG DAILY AC 09/08 0700 AC 09/09 PO 0531 Ondansetron HCl 4 MG Q6P PRN 09/09 0845 AC 09/09 IV 0852 Polyethylene Glycol 17 GM DAILY PRN 09/09 0500 AC PO Prednisone 5 MG DAILY 09/08 1000 AC 09/09 PO 0749 Sertraline HCl 75 MG DAILY 09/08 1000 AC 09/09 PO 0750 Sodium Bicarbonate 650 MG BID 09/07 2200 AC 09/09 PO 0749 Sodium Chloride 1,000 ML Q13H 09/08 1430 AC 09/09 IV 1401 Tizanidine HCl 2 MG AT BEDTIME 09/07 2200 AC 09/08 PO 2054 Results Pertinent Lab Results: Laboratory Tests 09/09 09/08 0710 1215 Chemistry Sodium (137 - 145 mmol/L) 133 L 130 L Potassium (3.5 - 5.1 mmol/L) 4.2 4.2 Chloride (98 - 107 mmol/L) 100 97 L Carbon Dioxide (22 - 30 mmol/L) 16 L 19 L Anion Gap (5 - 16) 17 H 14 BUN (7 - 17 mg/dL) 77 H 74 H Creatinine (0.5 - 1.0 mg/dL) 3.3 H 3.3 H Estimated GFR (>60 ml/min) 14 L 14 L BUN/Creatinine Ratio (7 - 25 %) 23.3 22.4 Hematology CBC w Diff MAN DIFF ORDERED WBC (4.8 - 10.8 /CUMM) 6.4 RBC (4.20 - 5.40 /CUMM) 2.50 L Hgb (12.0 - 16.0 G/DL) 8.6 L Hct (37 - 47 %) 25.8 L MCV (81.0 - 99.0 FL) 103.1 H MCH (27.0 - 31.0 PG) 34.5 H MCHC (33.0 - 37.0 G/DL) 33.5 RDW (11.5 - 14.5 %) 18.1 H Plt Count (130 - 400 /CUMM) 326 MPV (7.4 - 10.4 FL) 7.8 Gran % (42.2 - 75.2 %) 79.5 H Lymphocytes % (20.5 - 51.1 %) 11.1 L Monocytes % (1.7 - 9.3 %) 6.1 Eosinophils % (0 - 5 %) 3.2 Basophils % (0.0 - 2.0 %) 0.1 Absolute Granulocytes (1.4 - 6.5 /CUMM) 5.1 Segmented Neutrophils (42.2 - 75.2 %) 81 H Band Neutrophils (0.0 - 5.0 %) 4 Absolute Lymphocytes (1.2 - 3.4 /CUMM) 0.7 L Lymphocytes (20.5 - 51.1 %) 11 L Monocytes (1.7 - 9.3 %) 4 Absolute Monocytes (0.10 - 0.60 /CUMM) 0.4 Absolute Eosinophils (0.0 - 0.7 /CUMM) 0.2 Absolute Basophils (0.0 - 0.2 /CUMM) 0 Platelet Estimate (ADEQUATE) ADEQUATE Normochromic RBCs VERIFIED Anisocytosis 1+ Macrocytic Cells 1+ Other Body Source Fld Total RBCs Counted (%) 100 Toxicology Cyclosporine Pending 09/08 09/08 09/08 0836 0600 0400 Chemistry Sodium (137 - 145 mmol/L) Cancelled 129 L Potassium (3.5 - 5.1 mmol/L) Cancelled 4.1 Chloride (98 - 107 mmol/L) Cancelled 98 Carbon Dioxide (22 - 30 mmol/L) Cancelled 18 L Anion Gap (5 - 16) Cancelled 13 BUN (7 - 17 mg/dL) Cancelled 75 H Creatinine (0.5 - 1.0 mg/dL) Cancelled 3.2 H Estimated GFR (>60 ml/min) 15 L BUN/Creatinine Ratio (7 - 25 %) Cancelled 23.4 Hematology CBC w Diff MAN DIFF ORDERED WBC (4.8 - 10.8 /CUMM) 7.2 RBC (4.20 - 5.40 /CUMM) 2.55 L Hgb (12.0 - 16.0 G/DL) 9.0 L Hct (37 - 47 %) 27.0 L MCV (81.0 - 99.0 FL) 105.9 H MCH (27.0 - 31.0 PG) 35.4 H MCHC (33.0 - 37.0 G/DL) 33.4 RDW (11.5 - 14.5 %) 18.7 H Plt Count (130 - 400 /CUMM) 312 MPV (7.4 - 10.4 FL) 7.6 Gran % (42.2 - 75.2 %) 86.2 H Lymphocytes % (20.5 - 51.1 %) 8.4 L Monocytes % (1.7 - 9.3 %) 4.3 Eosinophils % (0 - 5 %) 0.9 Basophils % (0.0 - 2.0 %) 0.2 Absolute Granulocytes (1.4 - 6.5 /CUMM) 6.2 Segmented Neutrophils (42.2 - 75.2 %) 82 H Band Neutrophils (0.0 - 5.0 %) 5 Absolute Lymphocytes (1.2 - 3.4 /CUMM) 0.6 L Lymphocytes (20.5 - 51.1 %) 7 L Monocytes (1.7 - 9.3 %) 5 Absolute Monocytes (0.10 - 0.60 /CUMM) 0.3 Eosinophils (0 - 5.0 %) 1 Absolute Eosinophils (0.0 - 0.7 /CUMM) 0.1 Absolute Basophils (0.0 - 0.2 /CUMM) 0 Nucleated RBCs (0.0 - 0.0 /100WBC) 1 H Platelet Estimate (ADEQUATE) ADEQUATE Normochromic RBCs VERIFIED Polychromasia 1+ Poikilocytosis FEW Macrocytic Cells 2+ 09/07 09/07 09/07 1818 1809 1809 Chemistry Lactic Acid Cancelled Urines Urine Color (YEL,AMB,STR) YEL Urine Clarity (CLEAR) HAZY H Urine pH (5.0 - 8.0) 6.0 Ur Specific [place] (1.001 - 1.035) 1.020 Urine Protein (NEG,<30 MG/DL) 100 H Urine Ketones (NEG) NEG Urine Nitrite (NEG) NEG Urine Bilirubin (NEG) NEG Urine Urobilinogen (0.1 - 1.0 EU/dl) 0.2 Ur Leukocyte Esterase (NEG) SMALL H Ur Microscopic SEDIMENT EXAMINED Urine RBC (0 - 5 /HPF) FEW H Urine WBC (0 - 2 /HPF) 5-10 H Ur Epithelial Cells (NONE,FEW) FEW Urine Bacteria (NEG/NONE) PACKD H Urine Mucus (FEW,NONE) RARE Urine Hemoglobin (NEG) NEG Urine Osmolality (300 - 1000 MOSM/KG) 288 L Ur Random Creatinine (mg/dL) 41.5 Ur Random Sodium (30 - 90 mmol/L) 41 Ur Random Potassium (mmol/L) 38.6 Fraction Sodium Excret (<1% %) 2.4 H Urine Glucose (N MG/DL) NEG 09/07 1531 Chemistry Sodium (137 - 145 mmol/L) 131 L Potassium (3.5 - 5.1 mmol/L) 4.5 Chloride (98 - 107 mmol/L) 97 L Carbon Dioxide (22 - 30 mmol/L) 21 L Anion Gap (5 - 16) 14 BUN (7 - 17 mg/dL) 76 H Creatinine (0.5 - 1.0 mg/dL) 3.2 H Estimated GFR (>60 ml/min) 15 L BUN/Creatinine Ratio (7 - 25 %) 23.8 Glucose (65 - 99 mg/dL) 127 H Serum Osmolality (285 - 295 MOSM/KG) 294 Lactic Acid (0.7 - 2.1 mmol/L) 0.7 Calcium (8.4 - 10.2 mg/dL) 8.6 Magnesium (1.6 - 2.3 mg/dL) 2.3 Total Bilirubin (0.2 - 1.3 mg/dL) 0.7 AST (14 - 36 U/L) 20 ALT (9 - 52 U/L) 29 Alkaline Phosphatase (<127 U/L) 85 Creatine Kinase (30 - 135 U/L) 65 Troponin I (< 0.11 ng/ml) 0.02 Total Protein (6.3 - 8.2 g/dL) 6.1 L Albumin (3.5 - 5.0 g/dL) 3.4 L Globulin (1.9 - 4.2 gm/dL) 2.7 Albumin/Globulin Ratio (1.1 - 2.2 %) 1.3 TSH (0.270 - 4.200 uIU/mL) 0.267 L Free T4 (0.78 - 2.44 ng/dL) 1.96 Cortisol PM Sample (1.7 - 14.1) 35.5 H Hematology CBC w Diff NO MAN DIFF REQ WBC (4.8 - 10.8 /CUMM) 8.6 RBC (4.20 - 5.40 /CUMM) 2.54 L Hgb (12.0 - 16.0 G/DL) 8.9 L Hct (37 - 47 %) 26.6 L MCV (81.0 - 99.0 FL) 105.1 H MCH (27.0 - 31.0 PG) 35.0 H MCHC (33.0 - 37.0 G/DL) 33.3 RDW (11.5 - 14.5 %) 17.9 H Plt Count (130 - 400 /CUMM) 326 MPV (7.4 - 10.4 FL) 7.0 L Gran % (42.2 - 75.2 %) 86.4 H Lymphocytes % (20.5 - 51.1 %) 7.1 L Monocytes % (1.7 - 9.3 %) 6.3 Eosinophils % (0 - 5 %) 0.1 Basophils % (0.0 - 2.0 %) 0.1 Absolute Granulocytes (1.4 - 6.5 /CUMM) 7.4 H Absolute Lymphocytes (1.2 - 3.4 /CUMM) 0.6 L Absolute Monocytes (0.10 - 0.60 /CUMM) 0.5 Absolute Eosinophils (0.0 - 0.7 /CUMM) 0 Absolute Basophils (0.0 - 0.2 /CUMM) 0
[2017-09-09] MEDS ORDERED: KEFLEX250 M1 PO (11:58)
[2017-09-09 13:51] VITALS: BP 138/70
--- NOTE | 2017-09-09 16:21 | Discharge Summary ---
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 Patient contacted her PCP regarding these symptoms whom prescribed her Tamiflu for concern of influenza. For persistence of the symptoms she reported to the [facility] ED. ED course: Vital signs: Blood pressure 170/58, pulse 75, temperature 98.3, pulse ox 95 on room air CBC: WBC 8.6, hemoglobin 8.9, hematocrit 26.6, platelets 326, BEP was significant for hyponatremia sodium 131, potassium 4.5, anion gap 14, BUN 76, creatinine 3.2, glucose 127, Misc: lactic acid 0.7, calcium 8.6, magnesium 2.3, AST 20, AST 29, CPK 55, troponin 0.02, urinalysis was positive for small leukocyte esterase, few RBCs, urine WBC 510, urine bacteria packed Chest x-ray: No evidence of acute process CT head: No acute intracranial process, mild to moderate small vessel ischemic changes, stable right lateral cerebellar arachnoid cyst Patient received IV bolus 1 L normal saline, IV ceftriaxone 1 g in the ED Problem List on Admission -Urinary Tract Infection -Acute Kidney Injury on Chronic Kidney Disease -Hyponatremia -Polycystic kidney disease s/p renal transplant (1997), on Azathioprine/ Cyclosporine -History of Mycardial infarction -Questionable takotsubo cardiomyopathy -Pseudotumor cerebri s/p lumbar-peritoneal shunt -Small vessel disease -Hypertension -Anxiety/Depression Hospital Course Patient was admitted to the general medicine floor. There was initial concern hyponatremia secondary to SIADH for which patient was followed off antibiotics and started on fluid restriction. Urine lytes demonstrated a FeNA of 2.4 with a urine sodium of > 40 in a patient using lasix and acute kidney injury. Nephrology consult was placed given her history of renal transplant, ckd, and acute kidney injury whom did not believe patient had SIADH and was actually fluid depleted and should be hydrated. Patients fluid restriciton was removed and she was started on intravenous normal saline resulting in mild improvement of her hyponatremia, but minimally affected her renal function. Urine culture were drawn prior to being started on Ceftriaxone for concern of a urinary tract infection causing her weakness and dehydration. Urine culture later demonstrated growth of gram negative rods found to be E. Coli sensative to cephalosporins. Ceftriaxone was narrowed to Keflex for a total 7 day antibiotic course. She remained afebrile without leukocytosis during the hospital course. Patient was evaluated by physical therapy who felt patient would benefit from short term rehabilitation. She is discharged to home with health services with home physical therapy and instruction to take her antibiotics as directed and to follow up with her transplant pinion staker after discharge. Allergies: Coded Allergies: lisinopril (Severe, MOUTH SWELLING 09/08/15) Iodinated Contrast- Oral and IV Dye (IODINATED CONTRAST MEDIA - IV DYE) (Severe, KIDNEY TRANSPLANT 09/08/15) codeine (NAUSEA 09/08/15) hydrochlorothiazide (NAUSEA 09/08/15) Significant Procedures: SERVICE DATE: 09/07/17- EXAM TYPE: RAD - XRY-CHEST XRAY, TWO VIEWS IMPRESSION: No evidence of acute process. SERVICE DATE: 09/07/17-1518 EXAM TYPE: CAT - CT HEAD WO IV CONTRAST IMPRESSION: 1. No acute intracranial process. 2. Mild to moderate small vessel ischemic change. 3. Stable right retrocerebellar arachnoid cyst. Stable low-lying right cerebellar tonsil. Disposition Summary Disposition Principal Diagnosis: UTI Hyponatremia Acute Kidney Injury Additional Diagnosis: As above Discharge Disposition: SNF Discharge Instructions General Discharge Information Code Status: Full Code Patient's Diet: Renal diet Patient's Activity: Per PT assessment Follow-Up Instructions/Appts: Take keflex as directed. Continue all your previous medicaitons as directed. Be sure to stay hydrated. Follow up with your transplant pinion staker after discharge. Medications at Discharge Discharge Medications: Stop taking the following medications: Furosemide (Furosemide) 40 MG TABLET ORAL TWICE DAILY Qty = 180 Continue taking these medications: Azathioprine (Azathioprine) 50 MG TABLET 2 Tablet ORAL DAILY Qty = 180 Comments: Last Taken: 09/10/17 Time: 11AM Bupropion HCl (Bupropion XL) 300 MG TAB.ER.24H 1 Tablet ORAL Every Morning Days = 90 Comments: Last Taken: 09/10/17 Time: 11AM Clonidine HCl (Clonidine HCl) 0.1 MG TABLET 1 Tablet ORAL TWICE DAILY Qty = 180 Comments: Last Taken: 09/10/17 Time: 11AM Cyclosporine, Modified (Cyclosporine Modified) 100 MG CAPSULE 125 Milligram ORAL TWICE DAILY Qty = 180 Comments: Last Taken: 09/10/17 Time: 11AM Hydralazine HCl (Hydralazine HCl) 100 MG TABLET 1 Tablet ORAL THREE TIMES DAILY Qty = 270 Comments: NOT GIVEN IN HOSPITAL Esomeprazole (Nexium) 40 MG CAPSULE.DR 1 Capsule ORAL DAILY Qty = 90 Comments: Last Taken: 09/10/17 Time: 11AM PT GIVEN PRILOSEC Lorazepam (Lorazepam) 0.5 MG TABLET 2 Tablet ORAL AT BEDTIME Qty = 270 Comments: NOT GIVEN IN HOSPITAL Mometasone Furoate (Nasonex) 50 MCG SPRAY.PUMP 2 Newell Both sides of nose DAILY Qty = 51 Comments: NOT GIVEN IN HOSPITAL Prednisone (Prednisone) 5 MG TABLET 1 Tablet ORAL DAILY Qty = 90 Comments: Last Taken: 09/10/17 Time: 11AM Metoprolol Tartrate (Metoprolol Tartrate) 100 MG TABLET 1 Tablet ORAL TWICE DAILY Qty = 180 Comments: Last Taken: 09/10/17 Time: 11AM Nifedipine (Procardia XL) 90 MG TAB.ER.24 1 Tablet ORAL DAILY Qty = 90 Comments: NOT GIVEN IN HOSPITAL Valsartan (Valsartan) 320 MG TABLET 1 Tablet ORAL DAILY Qty = 90 Comments: NOT GIVEN IN HOSPITAL Sodium Bicarbonate (Sodium Bicarbonate) 650 MG TABLET 1 Tablet ORAL TWICE DAILY Comments: Last Taken: 09/10/17 Time: 11AM Sertraline HCl (Sertraline HCl) 50 MG TABLET 75 Milligram ORAL DAILY Days = 90 Comments: Last Taken: 09/10/17 Time: 11AM Aspirin (Oscar Chewable Aspirin) 81 MG TAB.CHEW 81 Milligram ORAL Every Day Comments: NOT GIVEN IN HOSPITAL Cyclobenzaprine HCl (Cyclobenzaprine HCl) 10 MG TABLET 1 Tablet ORAL TWICE DAILY Comments: NOT GIVEN IN HOSPITAL Potassium Chloride (Potassium Chloride) 20 MEQ TAB.ER.PRT 1 Tablet ORAL DAILY Comments: NOT GIVEN IN HOSPITAL Epoetin Lukas (Epogen) (Unknown Strength) VIAL 50,000 Units INTRAMUSC Every 3 weeks Comments: NOT GIVEN IN HOSPITAL Calcium Carbonate/Vitamin D3 (Calcium 500 + D Tablet) 500 MG-400 TABLET 1 Tablet ORAL TWICE DAILY Comments: NOT GIVEN IN HOSPITAL Fexofenadine HCl (Laury Allergy) 180 MG TABLET 1 Tablet ORAL DAILY Comments: NOT GIVEN IN HOSPITAL Fish Oil/Borage/Flax/Om3,6,9#1 ([place]angel[place] 3-6-9 1,200 MG Softgel) 1,200 MG CAPSULE 1 Capsule ORAL DAILY Comments: NOT GIVEN IN HOSPITAL Polyethylene Glycol 3350 (Miralax) 17 GRAM POWD.PACK 1 Packet ORAL DAILY Instructions: dissolve in water Comments: NOT GIVEN IN HOSPITAL Ergocalciferol (Vitamin D2) (Vitamin D2) 50,000 UNIT CAPSULE 1 Capsule ORAL SEE INSTRUCTIONS Instructions: EVERY OTHER MONTH Comments: NOT GIVEN IN HOSPITAL Ascorbic Acid (Vitamin C) 500 MG CAPSULE.ER 1 Capsule ORAL DAILY Comments: NOT GIVEN IN HOSPITAL Tizanidine HCl (Zanaflex) 2 MG CAPSULE 1 Tablet ORAL BEDTIME Comments: Last Taken: 09/09/17 Time: 9PM Prochlorperazine Maleate (Compazine) 5 MG TABLET 0.5 Tablet ORAL Every 2 hours as needed for NAUSEA/VOMITING Instructions: NOT GIVEN IN HOSPITAL Start taking the following new medications: Cephalexin (Keflex) 250 MG CAPSULE 1 Tablet ORAL EVERY 8 HOURS Qty = 13 No Refills Comments: Last Taken: 09/10/17 Time: 2PM Copies To: Jessica PENA,Yury Amanda MD,Mike Stinson
[2017-09-09 22:12] VITALS: BP 150/90
[2017-09-10 06:00] VITALS: BP 142/78
[2017-09-10] MEDS ORDERED: COMPAZINE5 M1 PO (10:13)
--- NOTE | 2017-09-10 10:20 | PN- Att Addend ---
Attending Addendum Attending Brief Note Patient seen and examined, feeling better today. Did get a good night sleep last night. Creatinine has improved to 2.6 and sodium is normal. Vital Signs Date Time Temp Pulse Resp B/P B/P Pulse O2 O2 Flow FiO2 Mean Ox Delivery Rate 09/10 0921 Room Air 09/10 0600 99.1 80 20 142/78 96 Room Air 09/09 2212 98.3 86 20 150/90 97 Room Air 09/09 2100 86 150/90 09/09 2059 86 150/90 09/09 1351 97.8 79 20 138/70 95 Room Air on exam; aox3, nad. cv; s1,s2, rrr resp; clear abd; soft, nt, bs+ ext; no edema Laboratory Tests 09/10 0640 Chemistry Sodium (137 - 145 mmol/L) 138 Potassium (3.5 - 5.1 mmol/L) 3.8 Chloride (98 - 107 mmol/L) 106 Carbon Dioxide (22 - 30 mmol/L) 17 L Anion Gap (5 - 16) 15 BUN (7 - 17 mg/dL) 73 H Creatinine (0.5 - 1.0 mg/dL) 2.6 H Estimated GFR (>60 ml/min) 19 L BUN/Creatinine Ratio (7 - 25 %) 28.1 H A/P; 66 y/o F with pmh sig for polycystic kidney disease s/p kidney transplant in 1997 with residual CKD 2/2 transplant glomerulonepropathy, [place] 3 days after transplant, suspected takotsubo cardiomyopathy, pseudotumor cerebri s/p lumbar- peritoneal shunt placement, arachnoid and left maxillary sinus cysts, resistant HTN, small vessel disease of the brain, depression and anxiety admitted with generalized weakness, low-grade fever, UTI, acute on chronic renal failure as well as hyponatremia. Creatinine improved significantly. Sodium is back to normal. Abx have been switched to oral Keflex. Please confirm with nephrology about resuming Lasix and Diovan. BP is running high. Patient to work with physical therapy on stairs. If she performs well, she can likely be discharged home today. Otherwise she will need to go to rehabilitation. We will continue the rest of her management. DVT prophylaxis: Heparin subcutaneous
--- NOTE | 2017-09-10 10:47 | PN- Housestaff ---
Subjective Follow-up For: UTI Hyponatremia weakness Subjective: Offers no complaints. Had much improved sleep. Feels well overall. Review of Systems Constitutional: Reports: see HPI. Objective Last 24 Hrs of Vital Signs/I&O Vital Signs Date Time Temp Pulse Resp B/P B/P Pulse O2 O2 Flow FiO2 Mean Ox Delivery Rate 09/10 0921 Room Air 09/10 0600 99.1 80 20 142/78 96 Room Air 09/09 2212 98.3 86 20 150/90 97 Room Air 09/09 2100 86 150/90 09/09 205 86 150/90 09/09 1351 97.8 79 20 138/70 95 Room Air Intake & Output 09/10 1600 09/10 0800 09/10 0000 Intake Total 700 1150 Output Total 1650 1070 Balance -950 80 Intake, IV 600 600 Intake, Oral 100 550 Number 0 Bowel Movements Output, Urine 1650 1070 Patient 171 lb Weight Weight Bed scale Measurement Method Physical Exam General Appearance: Alert, Oriented X3, Cooperative Cardiovascular: Regular Rate, Normal S1, Normal S2 Lungs: Clear to Auscultation, Normal Air Movement Abdomen: Normal Bowel Sounds, Soft, No Tenderness Extremities: No Clubbing, No Cyanosis Current Medications: Current Medications Sig/Tati Start time Last Medication Dose Route Stop Time Status Admin Acetaminophen 650 MG Q6P PRN 09/07 2044 AC 09/10 PO 0601 Azathioprine 100 MG DAILY 09/10 1000 AC PO Azathioprine 50 MG DAILY 09/08 1000 DC 09/09 PO 0747 Bupropion HCl 300 MG QAM 09/08 1000 AC 09/09 PO 0750 Cephalexin 250 MG Q8 09/09 1400 AC 09/10 PO 0601 Clonidine 0.1 MG BID 09/08 1000 AC 09/09 PO 2100 Cyclosporine 25 MG Q12 09/08 1000 AC 09/09 PO 2054 Cyclosporine 100 MG Q12 09/08 1000 AC 09/09 PO 2055 Heparin Sodium 5,000 UNIT Q8 09/07 2199 AC 09/10 (Porcine) SC 0601 Hydrocodone Bitart/ 1 TAB Q6P PRN 09/07 2044 AC Acetaminophen PO Lorazepam 1 MG AT BEDTIME 09/10 2199 AC PO 09/17 2158 Melatonin 3 MG AT BEDTIME 09/09 2199 AC 09/09 PO 2053 Metoprolol Tartrate 100 MG BID 09/07 2199 AC 09/09 PO 205 Omeprazole 40 MG DAILY AC 09/08 0700 AC 09/10 PO 0601 Ondansetron HCl 4 MG Q6P PRN 09/09 0845 AC 09/10 IV 0607 Polyethylene Glycol 17 GM DAILY PRN 09/09 0500 AC PO Prednisone 5 MG DAILY 09/08 1000 AC 09/09 PO 0749 Sertraline HCl 75 MG DAILY 09/08 1000 AC 09/09 PO 0750 Sodium Bicarbonate 650 MG BID 09/07 2200 AC 09/09 PO 2053 Sodium Chloride 1,000 ML Q13H 09/08 1430 AC 09/10 IV 0416 Tizanidine HCl 2 MG AT BEDTIME 09/07 2200 AC 09/09 PO 2053 Last 24 Hrs of Lab/Emiliano Results Last 24 Hrs of Labs/Mics: Laboratory Tests 09/10/17 0640: Anion Gap 15, Estimated GFR 19 L, BUN/Creatinine Ratio 28.1 H Assessment/Plan Assessment: 66-year-old woman with past medical history significant for polycystic kidney disease status post kidney transplant in 1997 complicated by transplant glomerulonephropathy, presented with generalized weakness, low-grade fever, urinary tract infection, acute on chronic renal failure and also hyponatremia. 1. Urine tract infection. Patient remains afebrile. Continue Keflex to complete total of 7 day course. Sodium at normal levels now, creatinine improving. 2. Acute on chronic renal failure. At baseline. We will check with nephrology for recommendations regarding her home dose of Lasix as well as Diovan. Cyclosporine level is pending. Likely discharge this evening, pending nephrology recommendations. Problem List: 1. Weakness 2. UTI (urinary tract infection) Pain Ratin Pain Location: Flank Pain Goal: Remain pain free Pain Plan: PRN Tomorrow's Labs & Rationales: Not needed. Consulting Request: Consulting Specialty: Urology
[2017-09-10 11:04] VITALS: BP 140/80
--- NOTE | 2017-09-10 12:23 | PN- Nephrology ---
Assessment/Plan Nephrology Assessment: 1. Acute kidney injury. Her serum creatinine is down to 2.6. Still suspect that this is related to the cystitis 2 hyponatremia. 3. History of heart disease. She had an KS in the perioperative period with a transplant. 4. Autosomal dominant polycystic kidney disease. This is the cause of her [place] kidney disease 5. Status post Living unrelated transplant Daily Suggestion: 1. continue fluids 2. Continue antibiotics Subjective Subjective: Patient is elated that her creatinine went down. Objective Vital Signs and I&Os Vital Signs Date Time Temp Pulse Resp B/P B/P Pulse O2 O2 Flow FiO2 Mean Ox Delivery Rate 09/10 1104 97.5 76 140/80 09/10 1058 97.5 76 140/80 09/10 0921 Room Air 09/10 0600 99.1 80 20 142/78 96 Room Air 09/09 2212 98.3 86 20 150/90 97 Room Air 09/09 2100 86 150/90 09/09 2059 86 150/90 09/09 1351 97.8 79 20 138/70 95 Room Air Intake & Output 09/10 1600 09/10 0400 09/09 1600 09/09 0400 09/08 1600 09/08 0400 Intake Total 700 1150 700 048 098 0500 Output Total 1650 1070 400 900 650 Balance -950 80 300 400 -135 350 Intake, IV 600 600 600 790 820 5093 Intake, Oral 100 550 100 100 240 Number 0 4 0 Bowel Movements Output, Urine 1650 1070 400 900 650 Patient 171 lb 197 lb 160 lb Weight Weight Bed scale Reported by Patient Measurement Method Physical Exam: General Appearance: well developed/nourished, no apparent distress, obese, chronically ill Head: atraumatic, normal appearance Eyes: Bilateral: normal appearance, PERRL, EOMI. Ears, Nose, Throat: normal pharynx, hearing grossly normal Neck: normal inspection, supple, trachea mid line, no midline tenderness Respiratory: normal breath sounds, chest non-tender, no respiratory distress, lungs clear Cardiovascular: regular rate/rhythm, edema Gastrointestinal: normal bowel sounds, soft, non-tender, no organomegaly, well healed surgical scar, no tenderness over the graft Back: normal inspection, normal range of motion, vertebral tenderness Extremities: normal inspection, normal capillary refill, normal range of motion, no edema, well healed scar over R knee Current Medications: Current Medications Sig/Tati Start time Last Medication Dose Route Stop Time Status Admin Acetaminophen 650 MG Q6P PRN 09/07 2045 AC 09/10 PO 0601 Azathioprine 100 MG DAILY 09/10 1000 AC 09/10 PO 1100 Azathioprine 50 MG DAILY 09/08 1000 DC 09/09 PO 0747 Bupropion HCl 300 MG QAM 09/08 1000 AC 09/10 PO 1106 Cephalexin 250 MG Q8 09/09 1400 AC 09/10 PO 0601 Clonidine 0.1 MG BID 09/08 1000 AC 09/10 PO 1058 Cyclosporine 25 MG Q12 09/08 1000 AC 09/10 PO 1050 Cyclosporine 100 MG Q12 09/08 1000 AC 09/10 PO 1110 Heparin Sodium 5,000 UNIT Q8 09/07 2200 AC 09/10 (Porcine) SC 0601 Hydrocodone Bitart/ 1 TAB Q6P PRN 09/07 204 AC Acetaminophen PO Lorazepam 1 MG AT BEDTIME 09/10 2200 AC PO 09/17 2159 Melatonin 3 MG AT BEDTIME 09/09 2200 AC 09/09 PO 2053 Metoprolol Tartrate 100 MG BID 09/07 2200 AC 09/10 PO 1104 Omeprazole 40 MG DAILY AC 09/08 0700 AC 09/10 PO 1048 Ondansetron HCl 4 MG Q6P PRN 09/09 0845 AC 09/10 IV 0607 Patient Medication 1 ED ONE ONE 09/10 1145 DC 09/10 Teaching ED 09/10 1146 1206 Polyethylene Glycol 17 GM DAILY PRN 09/09 0500 AC PO Prednisone 5 MG DAILY 09/08 1000 AC 09/10 PO 1107 Sertraline HCl 75 MG DAILY 09/08 1000 AC 09/10 PO 1106 Sodium Bicarbonate 650 MG BID 09/07 2200 AC 09/10 PO 1107 Sodium Chloride 1,000 ML Q13H 09/08 1430 AC 09/10 IV 0416 Tizanidine HCl 2 MG AT BEDTIME 09/07 220 AC 09/09 PO 2053 Results Pertinent Lab Results: Laboratory Tests 09/10 09/09 09/08 0640 0710 1215 Chemistry Sodium (137 - 145 mmol/L) 138 133 L 130 L Potassium (3.5 - 5.1 mmol/L) 3.8 4.2 4.2 Chloride (98 - 107 mmol/L) 106 100 97 L Carbon Dioxide (22 - 30 mmol/L) 17 L 16 L 19 L Anion Gap (5 - 16) 15 17 H 14 BUN (7 - 17 mg/dL) 73 H 77 H 74 H Creatinine (0.5 - 1.0 mg/dL) 2.6 H 3.3 H 3.3 H Estimated GFR (>60 ml/min) 19 L 14 L 14 L BUN/Creatinine Ratio (7 - 25 %) 28.1 H 23.3 22.4 Hematology CBC w Diff MAN DIFF ORDERED WBC (4.8 - 10.8 /CUMM) 6.4 RBC (4.20 - 5.40 /CUMM) 2.50 L Hgb (12.0 - 16.0 G/DL) 8.6 L Hct (37 - 47 %) 25.8 L MCV (81.0 - 99.0 FL) 103.1 H MCH (27.0 - 31.0 PG) 34.5 H MCHC (33.0 - 37.0 G/DL) 33.5 RDW (11.5 - 14.5 %) 18.1 H Plt Count (130 - 400 /CUMM) 326 MPV (7.4 - 10.4 FL) 7.8 Gran % (42.2 - 75.2 %) 79.5 H Lymphocytes % (20.5 - 51.1 %) 11.1 L Monocytes % (1.7 - 9.3 %) 6.1 Eosinophils % (0 - 5 %) 3.2 Basophils % (0.0 - 2.0 %) 0.1 Absolute Granulocytes (1.4 - 6.5 /CUMM) 5.1 Segmented Neutrophils (42.2 - 75.2 %) 81 H Band Neutrophils (0.0 - 5.0 %) 4 Absolute Lymphocytes (1.2 - 3.4 /CUMM) 0.7 L Lymphocytes (20.5 - 51.1 %) 11 L Monocytes (1.7 - 9.3 %) 4 Absolute Monocytes (0.10 - 0.60 /CUMM) 0.4 Absolute Eosinophils (0.0 - 0.7 /CUMM) 0.2 Absolute Basophils (0.0 - 0.2 /CUMM) 0 Platelet Estimate (ADEQUATE) ADEQUATE Normochromic RBCs VERIFIED Anisocytosis 1+ Macrocytic Cells 1+ Other Body Source Fld Total RBCs Counted (%) 100 Toxicology Cyclosporine Pending 09/08 09/08 09/08 0836 0600 0400 Chemistry Sodium (137 - 145 mmol/L) Cancelled 129 L Potassium (3.5 - 5.1 mmol/L) Cancelled 4.1 Chloride (98 - 107 mmol/L) Cancelled 98 Carbon Dioxide (22 - 30 mmol/L) Cancelled 18 L Anion Gap (5 - 16) Cancelled 13 BUN (7 - 17 mg/dL) Cancelled 75 H Creatinine (0.5 - 1.0 mg/dL) Cancelled 3.2 H Estimated GFR (>60 ml/min) 15 L BUN/Creatinine Ratio (7 - 25 %) Cancelled 23.4 Hematology CBC w Diff MAN DIFF ORDERED WBC (4.8 - 10.8 /CUMM) 7.2 RBC (4.20 - 5.40 /CUMM) 2.55 L Hgb (12.0 - 16.0 G/DL) 9.0 L Hct (37 - 47 %) 27.0 L MCV (81.0 - 99.0 FL) 105.9 H MCH (27.0 - 31.0 PG) 35.4 H MCHC (33.0 - 37.0 G/DL) 33.4 RDW (11.5 - 14.5 %) 18.7 H Plt Count (130 - 400 /CUMM) 312 MPV (7.4 - 10.4 FL) 7.6 Gran % (42.2 - 75.2 %) 86.2 H Lymphocytes % (20.5 - 51.1 %) 8.4 L Monocytes % (1.7 - 9.3 %) 4.3 Eosinophils % (0 - 5 %) 0.9 Basophils % (0.0 - 2.0 %) 0.2 Absolute Granulocytes (1.4 - 6.5 /CUMM) 6.2 Segmented Neutrophils (42.2 - 75.2 %) 82 H Band Neutrophils (0.0 - 5.0 %) 5 Absolute Lymphocytes (1.2 - 3.4 /CUMM) 0.6 L Lymphocytes (20.5 - 51.1 %) 7 L Monocytes (1.7 - 9.3 %) 5 Absolute Monocytes (0.10 - 0.60 /CUMM) 0.3 Eosinophils (0 - 5.0 %) 1 Absolute Eosinophils (0.0 - 0.7 /CUMM) 0.1 Absolute Basophils (0.0 - 0.2 /CUMM) 0 Nucleated RBCs (0.0 - 0.0 /100WBC) 1 H Platelet Estimate (ADEQUATE) ADEQUATE Normochromic RBCs VERIFIED Polychromasia 1+ Poikilocytosis FEW Macrocytic Cells 2+ 09/07 180 180 Chemistry Lactic Acid Cancelled Urines Urine Color (YEL,AMB,STR) YEL Urine Clarity (CLEAR) HAZY H Urine pH (5.0 - 8.0) 6.0 Ur Specific [place] (1.001 - 1.035) 1.020 Urine Protein (NEG,<30 MG/DL) 100 H Urine Ketones (NEG) NEG Urine Nitrite (NEG) NEG Urine Bilirubin (NEG) NEG Urine Urobilinogen (0.1 - 1.0 EU/dl) 0.2 Ur Leukocyte Esterase (NEG) SMALL H Ur Microscopic SEDIMENT EXAMINED Urine RBC (0 - 5 /HPF) FEW H Urine WBC (0 - 2 /HPF) 5-10 H Ur Epithelial Cells (NONE,FEW) FEW Urine Bacteria (NEG/NONE) PACKD H Urine Mucus (FEW,NONE) RARE Urine Hemoglobin (NEG) NEG Urine Osmolality (300 - 1000 MOSM/KG) 288 L Ur Random Creatinine (mg/dL) 41.5 Ur Random Sodium (30 - 90 mmol/L) 41 Ur Random Potassium (mmol/L) 38.6 Fraction Sodium Excret (<1% %) 2.4 H Urine Glucose (N MG/DL) NEG 09/07 1531 Chemistry Sodium (137 - 145 mmol/L) 131 L Potassium (3.5 - 5.1 mmol/L) 4.5 Chloride (98 - 107 mmol/L) 97 L Carbon Dioxide (22 - 30 mmol/L) 21 L Anion Gap (5 - 16) 14 BUN (7 - 17 mg/dL) 76 H Creatinine (0.5 - 1.0 mg/dL) 3.2 H Estimated GFR (>60 ml/min) 15 L BUN/Creatinine Ratio (7 - 25 %) 23.8 Glucose (65 - 99 mg/dL) 127 H Serum Osmolality (285 - 295 MOSM/KG) 294 Lactic Acid (0.7 - 2.1 mmol/L) 0.7 Calcium (8.4 - 10.2 mg/dL) 8.6 Magnesium (1.6 - 2.3 mg/dL) 2.3 Total Bilirubin (0.2 - 1.3 mg/dL) 0.7 AST (14 - 36 U/L) 20 ALT (9 - 52 U/L) 29 Alkaline Phosphatase (<127 U/L) 85 Creatine Kinase (30 - 135 U/L) 65 Troponin I (< 0.11 ng/ml) 0.02 Total Protein (6.3 - 8.2 g/dL) 6.1 L Albumin (3.5 - 5.0 g/dL) 3.4 L Globulin (1.9 - 4.2 gm/dL) 2.7 Albumin/Globulin Ratio (1.1 - 2.2 %) 1.3 TSH (0.270 - 4.200 uIU/mL) 0.267 L Free T4 (0.78 - 2.44 ng/dL) 1.96 Cortisol PM Sample (1.7 - 14.1) 35.5 H Hematology CBC w Diff NO MAN DIFF REQ WBC (4.8 - 10.8 /CUMM) 8.6 RBC (4.20 - 5.40 /CUMM) 2.54 L Hgb (12.0 - 16.0 G/DL) 8.9 L Hct (37 - 47 %) 26.6 L MCV (81.0 - 99.0 FL) 105.1 H MCH (27.0 - 31.0 PG) 35.0 H MCHC (33.0 - 37.0 G/DL) 33.3 RDW (11.5 - 14.5 %) 17.9 H Plt Count (130 - 400 /CUMM) 326 MPV (7.4 - 10.4 FL) 7.0 L Gran % (42.2 - 75.2 %) 86.4 H Lymphocytes % (20.5 - 51.1 %) 7.1 L Monocytes % (1.7 - 9.3 %) 6.3 Eosinophils % (0 - 5 %) 0.1 Basophils % (0.0 - 2.0 %) 0.1 Absolute Granulocytes (1.4 - 6.5 /CUMM) 7.4 H Absolute Lymphocytes (1.2 - 3.4 /CUMM) 0.6 L Absolute Monocytes (0.10 - 0.60 /CUMM) 0.5 Absolute Eosinophils (0.0 - 0.7 /CUMM) 0 Absolute Basophils (0.0 - 0.2 /CUMM) 0
== END 2017-09-10 15:36 | disposition home health service (06) | DRG 690 ==
LOC: ERH 15:05 → ERHI 19:08 → 2NA 19:08 → ENRESERV 19:42 → ENTRNSPT 20:40 → EDTRNSPTSTS 20:54 → 2NA 20:58 → CMPTRNSPT 21:12 → 2NA 09-08 08:00 → ENPENDDIS 09-10 13:31 → 2NA 09-10 15:36
PROVIDERS: Internal Medicine Hematology & Oncology; Internal Medicine Interventional Cardiology; Physician Assistant
DX: N39.0 Urinary tract infection, site not specified (principal); E87.2 Acidosis; B37.81 Candidal esophagitis; N17.9 Acute kidney failure, unspecified; N18.4 Chronic kidney disease, stage 4 (severe); E87.1 Hypo-osmolality and hyponatremia; G62.9 Polyneuropathy, unspecified; Z94.0 Kidney transplant status; I51.81 Takotsubo syndrome; R26.81 Unsteadiness on feet; F32.9 Major depressive disorder, single episode, unspecified; F41.9 Anxiety disorder, unspecified; G93.2 Benign intracranial hypertension; I25.2 Old myocardial infarction; J34.1 Cyst and mucocele of nose and nasal sinus; Z88.5 Allergy status to narcotic agent; Z88.8 Allergy status to other drugs, medicaments and biological substances; Z91.041 Radiographic dye allergy status; Z79.82 Long term (current) use of aspirin; Z79.52 Long term (current) use of systemic steroids; Z90.710 Acquired absence of both cervix and uterus; Z98.51 Tubal ligation status; Z96.651 Presence of right artificial knee joint; Z96.698 Presence of other orthopedic joint implants; Z84.1 Family history of disorders of kidney and ureter; I12.9 Hypertensive chronic kidney disease with stage 1 through stage 4 chronic kidney disease, or unspecified chronic kidney disease; D63.8 Anemia in other chronic diseases classified elsewhere
CPT/HCPCS: 2NASP; 84133; 84300; 36592; 71046; 81001; 82436; 82570; 87086; 87804; 87804-59; 93005; 93010; 96374; 97110-GO; 97116-GO; 97161-GP; 97530-GO; J0696; J1644; J2405; J7502; J7512; J7515